=== PATIENT | female | born 1930 | race Caucasian/White ===

== ENCOUNTER 2017-08-25 13:55 | Inpatient (IN) | payer MEDICARE, MEDICAID ==
--- NOTE | 2017-08-25 14:43 | ER Document Report ---
ED Medical Screen (RME) - General Chief Complaint: Dizziness Stated Complaint: DIZZY,NAUSEA Time Seen by Provider: 08/25/17 14:39 Notes: She states that her blood pressure is also been elevated recently but she has not missed any doses of her medications. She denies any pain. No vomiting or diarrhea. TRAVEL OUTSIDE OF THE [place] IN LAST 30 DAYS: No - Related Data Allergies/Adverse Reactions: No Known Allergies Allergy (Verified 08/25/17 13:55) Past Medical History - Past Medical History Cardiac Medical History: Reports: Hx Hypertension Endocrine Medical History: Reports: Hx Diabetes Mellitus Type 2 Renal/ Medical History: Denies: Hx Peritoneal Dialysis - Immunizations Hx Diphtheria, Pertussis, Tetanus Vaccination: No Physical Exam - Vital signs Vitals: Temp Pulse Resp BP Pulse Ox 98.3 F 77 20 228/109 H 97 08/25/17 14:10 08/25/17 14:10 08/25/17 14:10 08/25/17 14:10 08/25/17 14:10 Course - Vital Signs Vital signs: Temp Pulse Resp BP Pulse Ox 98.3 F 77 20 228/109 H 97 08/25/17 14:10 08/25/17 14:10 08/25/17 14:10 08/25/17 14:10 08/25/17 14:10
--- NOTE | 2017-08-25 15:16 | RADIOLOGY REPORT (SQ) ---
EXAM DESCRIPTION: CT HEAD WITHOUT COMPLETED DATE/TIME: 08/25/2017 3:06 pm REASON FOR STUDY: dizzy COMPARISON: CT brain 10/24/2012 TECHNIQUE: Axial images acquired through the brain without intravenous contrast. Images reviewed wi th bone, brain and subdural windows. Images stored on PACS. All CT scanners at this facility use dose modulation, iterative reconstruction, and/or weight based d osing when appropriate to reduce radiation dose to as low as reasonably achievable (ALARA). [facility]: Dose Right [facility]: CareDose [facility]: Dose Right [facility]: Teradose 4D [facility]: [employer] RADIATION DOSE: CT Rad equipment meets quality standard of care and radiation dose reduction techniq ues were employed. CTDIvol: 64.6 mGy. DLP: 1163 mGy-cm. mGy. LIMITATIONS: None. FINDINGS: VENTRICLES: Normal size and contour. CEREBRUM: There is spotty low attenuation in the bifrontal and biparietal white matter, with an old i nfarct in the left caudate lobe from chronic small vessel ischemic change. No CT evidence of acute la rge territory ischemic change, acute intracranial hemorrhage, mass effect, or midline shift. CEREBELLUM: No masses. No hemorrhage. No alteration of density. No evidence for acute infarction. EXTRAAXIAL SPACES: No fluid collections. No masses. ORBITS AND GLOBE: No intra- or extraconal masses. Normal contour of globe without masses. CALVARIUM: No fracture. PARANASAL SINUSES: No fluid or mucosal thickening. SOFT TISSUES: No mass or hematoma. OTHER: No other significant finding. IMPRESSION: No acute findings EVIDENCE OF ACUTE STROKE: NO. COMMENT: Quality ID # [id number]: Final reports with documentation of one or more dose reduction techniques (e.g., Automated exposure control, adjustment of the mA and/or kV according to patient size, use of iterative reconstruction technique) TECHNICAL DOCUMENTATION: JOB ID: [id number] [employer]- All Rights Reserved Reading location - IP/workstation name: [email or web address]
[2017-08-25 15:19] LABS: ABSOLUTE BASOPHILS # (AUTO) 0.1 10^3/uL (0.0-0.2); ABSOLUTE LYMPHOCYTES (AUTO) 1.8 10^3/uL (0.5-4.7); ABSOLUTE MONOCYTES (AUTO) 0.4 10^3/uL (0.1-1.4); ABSOLUTE NEUT (AUTO) 7.5 10^3/uL (1.7-8.2); BASOPHILS % (AUTO) 0.9 % (0-2); EOSINOPHILS % (AUTO) 0.5 % (0-6); HEMATOCRIT 45.4 % (36.0-47.0); HEMOGLOBIN 15.3 g/dL (12.0-15.5); LYMPHOCYTES % (AUTO) 17.9 % (13-45); MEAN CORPUSCULAR HEMOGLOBIN 29.6 pg (27.0-33.4); MEAN CORPUSCULAR HGB CONC 33.8 g/dL (32.0-36.0); MEAN CORPUSCULAR VOLUME 88 fl (80-97); MONOCYTES % (AUTO) 4.2 % (3-13); PLATELET COUNT 234 10^3/uL (150-450); RED BLOOD COUNT 5.17 10^6/uL (3.72-5.28); RED CELL DISTRIBUTION WIDTH 13.4 % (11.5-14.0); SEGMENTED NEUTROPHILS % (AUTO) 76.5 % (42-78); TOTAL CELLS COUNTED % (AUTO) 100 %; WHITE BLOOD COUNT 9.8 10^3/uL (4.0-10.5)
[2017-08-25 15:36] LABS: ALANINE AMINOTRANSFERASE 35 U/L (9-52); ALBUMIN 4.4 g/dL (3.5-5.0); ALKALINE PHOSPHATASE 71 U/L (38-126); ANION GAP 12 (5-19); ASPARTATE AMINO TRANSFERASE 25 U/L (14-36); BILIRUBIN,DIRECT 0.4 mg/dL (0.0-0.4); BILIRUBIN,TOTAL 0.5 mg/dL (0.2-1.3); BLOOD UREA NITROGEN 18 mg/dL (7-20); CALCIUM 9.6 mg/dL (8.4-10.2); CARBON DIOXIDE 20 mmol/L (22-30); CHLORIDE 109 mmol/L (98-107); GLUCOSE 141 mg/dL (75-110); POTASSIUM 4.5 mmol/L (3.6-5.0); SODIUM 141.4 mmol/L (137-145); TOTAL PROTEIN 7.3 g/dL (6.3-8.2)
[2017-08-25 15:50] LABS: APPEARANCE,URINE SLIGHTLY-CLOUDY; BILIRUBIN,URINE NEGATIVE (NEGATIVE); GLUCOSE, URINE NEGATIVE (NEGATIVE); KETONES,URINE NEGATIVE (NEGATIVE); LEUKOCYTE ESTERASE,URINE SMALL (NEGATIVE); NITRITE,URINE NEGATIVE (NEGATIVE); PROTEIN,URINE NEGATIVE (NEGATIVE); URINE SPECIFIC GRAVITY 1.021
[2017-08-25 15:51] LABS: COLOR,URINE YELLOW
[2017-08-25] MEDS ORDERED: LABETALOL HCL INJ 20 MG/4 ML DISP.SYRIN IV ONE (18:21)
[2017-08-25] MEDS ORDERED: NICARDIPINE HCL RTU, ISO-OS 20 MG/200 ML RTUINJ IV PRN (19:35)
--- NOTE | 2017-08-25 19:36 | ER Document Report ---
ED General - General Mode of Arrival: Ambulatory Information source: Patient TRAVEL OUTSIDE OF THE [place] IN LAST 30 DAYS: No <ESTHER STARKS - Last Filed: 08/25/17 23:28> <BEAU VANCE - Last Filed: 08/26/17 02:10> - General Chief Complaint: Dizziness Stated Complaint: DIZZY,NAUSEA Time Seen by Provider: 08/25/17 14:39 Notes: Patient is an 86 year old female with a history of type 2 diabetes presents to the emergency department complaining of multiple symptoms including dizziness, nausea, and vomiting onset this morning. Patient states when she woke up this morning to use the bathroom she became really dizzy and decided to lay back down. Patient states when she awoke an hour later she was nauseous and vomited her breakfast of wheat toast. Patient further states she remained dizzy which is exacerbated with movement and relived when supine. At bedside patient states she is still dizzy although no longer nauseous. Patient states she currently takes Lisinopril and Metformin. (ESTHER STARKS) - Related Data Allergies/Adverse Reactions: No Known Allergies Allergy (Verified 08/25/17 13:55) Past Medical History - General Information source: Patient - Social History Smoking Status: Never Smoker Family History: Reviewed & Not Pertinent Patient has suicidal ideation: No Patient has homicidal ideation: No - Past Medical History Cardiac Medical History: Reports: Hx Hypertension Endocrine Medical History: Reports: Hx Diabetes Mellitus Type 2 - Immunizations Hx Diphtheria, Pertussis, Tetanus Vaccination: No <ESTHER STARKS - Last Filed: 08/25/17 23:28> Review of Systems - Review of Systems Constitutional: No symptoms reported EENT: No symptoms reported Cardiovascular: See HPI, Dizziness Respiratory: No symptoms reported Gastrointestinal: See HPI, Nausea, Vomiting Genitourinary: No symptoms reported Female Genitourinary: No symptoms reported Musculoskeletal: No symptoms reported Skin: No symptoms reported Hematologic/Lymphatic: No symptoms reported Neurological/Psychological: No symptoms reported -: Yes All other systems reviewed and negative <ESTHER STARKS - Last Filed: 08/25/17 23:28> Physical Exam <ESTHER STARKS - Last Filed: 08/25/17 23:28> <BEAU VANCE - Last Filed: 08/26/17 02:10> - Vital signs Vitals: Temp Pulse Resp BP Pulse Ox 98.3 F 77 20 228/109 H 97 08/25/17 14:10 08/25/17 14:10 08/25/17 14:10 08/25/17 14:10 08/25/17 14:10 - Notes Notes: GENERAL: Alert, interacts well. No acute distress. Hypertensive. HEAD: Normocephalic, atraumatic. EYES: Pupils equal, round, and reactive to light. Extraocular movements intact. ENT: Oral mucosa moist, tongue midline. NECK: Full range of motion. Supple. Trachea midline. LUNGS: Clear to auscultation bilaterally, no wheezes, rales, or rhonchi. No respiratory distress. HEART: Regular rate and rhythm. No murmurs, gallops, or rubs. ABDOMEN: Soft, non-tender. Non-distended. Bowel sounds present in all 4 quadrants. EXTREMITIES: Moves all 4 extremities spontaneously. NEUROLOGICAL: Alert and oriented x3. Normal speech. Neurologically intact. PSYCH: Normal affect, normal mood. SKIN: Warm, dry, normal turgor. No rashes or lesions noted. (ESTHER STARKS) Course - Laboratory Result Diagrams: 08/25/17 14:50 08/25/17 14:50 <ESTHER STARKS - Last Filed: 08/25/17 23:28> - Laboratory Result Diagrams: 08/25/17 14:50 08/25/17 14:50 - Diagnostic Test Radiology reviewed: Reports reviewed <BEAU VANCE - Last Filed: 08/26/17 02:10> - Re-evaluation Re-evalutation: 08/26/17 Patient is an 86-year-old female who comes in complaining of not feeling well. Patient has been off balance today and also nauseated. Patient had episodes of vomiting at home. Patient had her nausea controlled with Zofran here in the emergency department. No acute finding on blood work including 2 negative troponins. No acute findings on EKG. CT head within normal limits. Patient has been severely hypertensive. She was given labetalol without much change in her blood pressure. Patient was discussed with her primary care doctor and Cardene drip was initiated. MRI head with no acute findings. Patient will be admitted to the ICU due to her being on a Cardene drip. We will try to titrate her up and down patient is only tolerating a very low dose. Patient is agreeable with admission. Stable at time of admission. Grateful for care. ( BEAU VANCE) - Vital Signs Vital signs: Temp Pulse Resp BP Pulse Ox 98.3 F 78 18 170/97 H 96 08/25/17 14:10 08/26/17 00:00 08/26/17 00:00 08/26/17 00:00 08/26/17 00:00 - Laboratory Laboratory results interpreted by me: 08/25/17 08/25/17 08/25/17 14:50 15:37 22:23 Chloride 109 H Carbon Dioxide 20 L Glucose 141 H POC Glucose 159 H Urine Urobilinogen 2.0 H Ur Leukocyte Esterase SMALL H Critical Care Note - Critical Care Note Total time excluding time spent on procedures (mins): 45 - Evaluation and management of hypertensive emergency, neurologic symptoms, multiple re- evaluations, initiation of Cardene drip, coordination of admission, and sling of patient and family, multiple re-evaluations <BEAU VANCE - Last Filed: 08/26/17 02:10> Discharge <ESTHER STARKS - Last Filed: 08/25/17 23:28> - Discharge Admitting Provider: Riana Unit Admitted: ICU <BEAU VANCE - Last Filed: 08/26/17 02:10> - Discharge Clinical Impression: Accelerated hypertension, Nausea, Balance problem Condition: Stable Disposition: ADMITTED INPATIENT Scribe Attestation: 08/26/17 02:09 I personally performed the services described in the documentation, reviewed and edited the documentation which was dictated to the scribe in my presence, and it accurately records my words and actions. (BEAU VANCE)
--- NOTE | 2017-08-25 20:00 | EKG REPORT ---
SEVERITY:- ABNORMAL ECG - SINUS RHYTHM LEFT VENTRICULAR HYPERTROPHY : Confirmed by: Hermes Ibarra MD 25-Aug-2017 20:00:11
[2017-08-25] MEDS ORDERED: LORAZEPAM INJ 2 MG/1 ML VIAL IV ONE (20:20)
--- NOTE | 2017-08-25 21:21 | RADIOLOGY REPORT (SQ) ---
EXAM DESCRIPTION: MRI HEAD WITHOUT COMPLETED DATE/TIME: 08/25/2017 9:10 pm REASON FOR STUDY: hypertensive urgency, balance issues COMPARISON: CT dated 08/25/2017. TECHNIQUE: Multiplanar imaging includes non-contrasted T1, T2, FLAIR, and diffusion with ADC map seq uences. Images stored on PACS. LIMITATIONS: None. FINDINGS: ANATOMY: No anomalies. Normal vascular flow voids. Pituitary fossa normal. CSF SPACES: Atrophy induced prominence of ventricles and CSF spaces. CEREBRUM: High signal intensity lesions scattered throughout the white matter on FLAIR imaging with d istribution suggesting micro-vascular ischemic changes. No evidence of hemorrhage, mass, or extraaxi al fluid collection. POSTERIOR FOSSA: No signal alteration. No hemorrhage. No edema, masses or mass effect. Internal aleksandr tory canals, cerebello-pontine angles, mastoids normal. DIFFUSION IMAGING: Negative for acute or sub-acute infarction. ORBITS: No masses. Globes normal. PARANASAL SINUSES: No fluid levels. Mucosa normal. OTHER: No other significant finding. IMPRESSION: ATROPHY AND CHRONIC MICRO-VASCULAR ISCHEMIC CHANGES. OTHERWISE NORMAL MRI OF THE BRAIN W ITHOUT INTRAVENOUS GADOLINIUM CONTRAST. EVIDENCE OF ACUTE STROKE: NO. TECHNICAL DOCUMENTATION: JOB ID: [id number]- All Rights Reserved Reading location - IP/workstation name: [email or web address]
[2017-08-25] MEDS ORDERED: ONDANSETRON HCL INJ/PF 4 MG/2 ML SDV IV ONE (21:59)
[2017-08-26] MEDS ORDERED: ACETAMINOPHEN 325 MG TABLET PO PRN (01:03)
--- NOTE | 2017-08-26 01:07 | RADIOLOGY REPORT (SQ) ---
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 COMPARISON: 10/24/2012 NUMBER OF VIEWS/TECHNIQUE: 1/AP LIMITATIONS: None. FINDINGS: Prominent interstitium, small bibasilar atelectasis or scar, normal cardiac silhouette, atherosclerosis, and mild osteoarthritis. Stable. IMPRESSION: No acute cardiopulmonary findings.
[2017-08-26 03:50] LABS: ABSOLUTE BASOPHILS # (AUTO) 0.1 10^3/uL (0.0-0.2); ABSOLUTE LYMPHOCYTES (AUTO) 1.9 10^3/uL (0.5-4.7); ABSOLUTE MONOCYTES (AUTO) 0.6 10^3/uL (0.1-1.4); ABSOLUTE NEUT (AUTO) 9.5 10^3/uL (1.7-8.2); BASOPHILS % (AUTO) 0.5 % (0-2); EOSINOPHILS % (AUTO) 0.2 % (0-6); HEMATOCRIT 43.6 % (36.0-47.0); HEMOGLOBIN 14.4 g/dL (12.0-15.5); LYMPHOCYTES % (AUTO) 15.8 % (13-45); MEAN CORPUSCULAR HEMOGLOBIN 29.2 pg (27.0-33.4); MEAN CORPUSCULAR VOLUME 89 fl (80-97); MONOCYTES % (AUTO) 4.6 % (3-13); PLATELET COUNT 224 10^3/uL (150-450); RED BLOOD COUNT 4.93 10^6/uL (3.72-5.28); RED CELL DISTRIBUTION WIDTH 13.2 % (11.5-14.0); SEGMENTED NEUTROPHILS % (AUTO) 78.9 % (42-78); TOTAL CELLS COUNTED % (AUTO) 100 %; WHITE BLOOD COUNT 12.1 10^3/uL (4.0-10.5)
[2017-08-26 04:14] LABS: ALANINE AMINOTRANSFERASE 31 U/L (9-52); ALKALINE PHOSPHATASE 57 U/L (38-126); ANION GAP 9 (5-19); ASPARTATE AMINO TRANSFERASE 23 U/L (14-36); BILIRUBIN,DIRECT 0.4 mg/dL (0.0-0.4); BILIRUBIN,TOTAL 0.5 mg/dL (0.2-1.3); BLOOD UREA NITROGEN 16 mg/dL (7-20); CARBON DIOXIDE 25 mmol/L (22-30); CHLORIDE 108 mmol/L (98-107); GLUCOSE 154 mg/dL (75-110); PHOSPHORUS 3.9 mg/dL (2.5-4.5); POTASSIUM 4.1 mmol/L (3.6-5.0); TOTAL PROTEIN 6.7 g/dL (6.3-8.2)
[2017-08-26] MEDS: LANSOPRAZOLE 30 MG TAB.RAP.DR PO SCH (06:21)
[2017-08-26] MEDS: NICARDIPINE HCL RTU, ISO-OS 20 MG/200 ML RTUINJ IV PRN ×3 (06:41→23:48)
[2017-08-26] MEDS ORDERED: DEXTROSE 40% GEL 15 GM TUBE PO PRN ×2 (08:24)
[2017-08-26] MEDS ORDERED: INSULIN LISPRO 100 UNIT/ML 3 ML VIAL SUBCUT PRN (08:24)
[2017-08-26] MEDS ORDERED: GLUCAGON,HUMAN RECOMB 1 MG INJ IM PRN (08:24)
[2017-08-26] MEDS ORDERED: DEXTROSE 50%-WATER 25 GM/50 ML DISP.SYRIN IV PRN ×2 (08:24)
--- NOTE | 2017-08-26 08:49 | PDOC H&P ---
History of Present Illness Admission Date/PCP: 08/25/17 22:45 FLORENTINO FAN Patient complains of: Nausea and dizziness History of Present Illness: DEUCE SAAVEDRA is a 86 year old female known to my practice who presented to the ED with new onset of dizziness while walking, nausea and vomiting while walking. Patient states when she woke up this morning to use the bathroom she became really dizzy and decided to lay back down. She reported inability to tolerate her breakfast prior to coming to the ED due to associated nause and vomiting that started after her initial episode of dizziness. She was found to have significantly elevated blood pressure upon arrival in the ED as pre recorded vitals. There was persistence of dizziness, particularly worsen with any attempts at walking. Her evaluation with head CT scan and subsequently head MRI was unrevealing. She was treated with IV Labetalol with minimal response. She was advised hospitalization for further management of her elevated blood pressure with possible end organ impairment in view of her abnormal gait and postural dizziness. Her morbidities include Hypertension, Diabetes mellitus type 2, Obesity, and Osteoarthritis. Past Medical History Cardiac Medical History: Reports: Hypertension Endocrine Medical History: Reports: Diabetes Mellitus Type 2 Psychiatric Medical History: Denies: Depression Social History Smoking Status: Never Smoker Frequency of Alcohol Use: None Hx Recreational Drug Use: No Hx Prescription Drug Abuse: No - Advance Directive Resuscitation Status: Full Code Family History Family History: Reviewed & Not Pertinent Parental Family History Reviewed: Yes Children Family History Reviewed: Yes Sibling(s) Family History Reviewed.: Yes Medication/Allergy Home Medications: Fluticasone Propionate 1 spray NASL DAILY 08/25/17 Lisinopril [Lisinopril] 40 mg PO DAILY 08/25/17 Metformin HCl [Metformin HCl] 500 mg PO DAILY 08/25/17 Allergies/Adverse Reactions: No Known Allergies Allergy (Verified 08/25/17 13:55) Review of Systems Constitutional: PRESENT: headache(s) Ears: PRESENT: hearing changes - long standing hearing impairment Cardiovascular: ABSENT: chest pain, dyspnea on exertion, edema, orthropnea, palpitations Respiratory: ABSENT: cough, hemoptysis Gastrointestinal: PRESENT: nausea. ABSENT: as per HPI, abdominal pain, bloating , coffee ground emesis, constipation, diarrhea, dysphagia, heartburn, hematemesis, hematochezia, melena, vomiting, other Genitourinary: ABSENT: dysuria, hematuria Musculoskeletal: ABSENT: joint swelling Integumentary: ABSENT: rash, wounds Neurological: PRESENT: abnormal gait - not walking straight and dizziness. ABSENT: as per HPI, abnormal movements, abnormal speech, confusion, convulsions , dizziness, focal weakness, frequent falls, lack of coordination, memory loss, numbness, paresthesias, restless legs, syncope, tingling, tremor(s), vertigo, weakness, other Psychiatric: ABSENT: anxiety, depression, homidical ideation, suicidal ideation Endocrine: ABSENT: cold intolerance, heat intolerance, polydipsia, polyuria Hematologic/Lymphatic: ABSENT: easy bleeding, easy bruising, lymphadenopathy Allergic/Immunologic: ABSENT: seasonal rhinorrhea Physical Exam Vital Signs: Temp Pulse Resp BP Pulse Ox 98.4 F 73 16 149/65 H 96 08/26/17 08:00 08/26/17 08:00 08/26/17 08:00 08/26/17 08:00 08/26/17 08:07 Intake & Output 08/25/17 08/26/17 08/27/17 06:59 06:59 06:59 Output Total 0 250 Balance 0 -250 Weight 82 kg General appearance: PRESENT: no acute distress, well-developed, well-nourished Head exam: PRESENT: atraumatic, normocephalic Eye exam: PRESENT: conjunctiva pink, EOMI, PERRLA. ABSENT: scleral icterus Mouth exam: PRESENT: moist Neck exam: PRESENT: full ROM. ABSENT: carotid bruit, JVD, lymphadenopathy, thyromegaly Respiratory exam: PRESENT: clear to auscultation carlin Cardiovascular exam: PRESENT: RRR. ABSENT: diastolic murmur, rubs, systolic murmur Pulses: PRESENT: normal dorsalis pedis pul, +2 pedal pulses bilateral Vascular exam: PRESENT: normal capillary refill. ABSENT: pallor GI/Abdominal exam: PRESENT: normal bowel sounds, soft. ABSENT: distended, guarding, mass, organolmegaly, rebound, tenderness Rectal exam: PRESENT: deferred Extremities exam: ABSENT: pedal edema Musculoskeletal exam: PRESENT: deformity - related to multiple joint involvment with arthriis Neurological exam: PRESENT: alert, awake, oriented to person, oriented to place , oriented to time, oriented to situation, abnormal gait - related to dizziness , CN II-XII grossly intact. ABSENT: motor sensory deficit Psychiatric exam: PRESENT: appropriate affect, normal mood. ABSENT: homicidal ideation, suicidal ideation Skin exam: PRESENT: dry, intact, rash - severe diffuse seborrhiec keratosis, warm. ABSENT: cyanosis Results Laboratory Results: 08/26/17 03:36 08/26/17 03:36 08/26/17 08/26/17 03:36 03:36 WBC 12.1 H RBC 4.93 Hgb 14.4 Hct 43.6 MCV 89 MCH 29.2 MCHC 33.0 RDW 13.2 Plt Count 224 Seg Neutrophils % 78.9 H Lymphocytes % 15.8 Monocytes % 4.6 Eosinophils % 0.2 Basophils % 0.5 Absolute Neutrophils 9.5 H Absolute Lymphocytes 1.9 Absolute Monocytes 0.6 Absolute Eosinophils 0.0 Absolute Basophils 0.1 Sodium 142.0 Potassium 4.1 Chloride 108 H Carbon Dioxide 25 Anion Gap 9 BUN 16 Creatinine 0.67 Est GFR ( Amer) > 60 Est GFR (Non-Af Amer) > 60 Glucose 154 H Calcium 9.0 Phosphorus 3.9 Magnesium 1.8 Total Bilirubin 0.5 AST 23 ALT 31 Alkaline Phosphatase 57 Total Protein 6.7 Albumin 4.0 Impressions: Chest X-Ray 08/25/17 00:00 IMPRESSION: No acute cardiopulmonary findings. Head CT 08/25/17 14:39 IMPRESSION: No acute findings EVIDENCE OF ACUTE STROKE: NO. Head MRI 08/25/17 19:36 IMPRESSION: ATROPHY AND CHRONIC MICRO-VASCULAR ISCHEMIC CHANGES. OTHERWISE NORMAL MRI OF THE BRAIN WITHOUT INTRAVENOUS GADOLINIUM CONTRAST. EVIDENCE OF ACUTE STROKE: NO. Assessment & Plan - Time Time Spent: 50 to 70 Minutes Medications reviewed and adjusted accordingly: Yes Anticipated discharge: Home with Homehealth Within: Other - Inpatient Certification Based on my medical assessment, after consideration of the patient's comorbidities, presenting symptoms, or acuity I expect that the services needed warrant INPATIENT care.: Yes I certify that my determination is in accordance with my understanding of Medicare's requirements for reasonable and necessary INPATIENT services [42 CFR 412.3e].: Yes Medical Necessity: Need Close Monitoring Due to Risk of Patient Decompensation, Need For Continuous Telemetry Monitoring, Need for IV Antibiotics, Risk of Complication if Not Cared For in Hospital 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
[2017-08-26] MEDS ORDERED: CEFTRIAXONE 1 GM/D5W RTU 1 GM/50 ML RTUPB IV SCH (09:00)
--- NOTE | 2017-08-26 09:29 | EKG REPORT ---
SEVERITY:- ABNORMAL ECG - SINUS RHYTHM PAIRED VENTRICULAR PREMATURE COMPLEXES LVH BY VOLTAGE : Confirmed by: Hermes Ibarra MD 26-Aug-2017 09:28:32
--- NOTE | 2017-08-26 09:31 | EKG REPORT ---
SEVERITY:- ABNORMAL ECG - SINUS RHYTHM LVH WITH SECONDARY REPOLARIZATION ABNORMALITY : Confirmed by: Hermes Ibarra MD 26-Aug-2017 09:30:19
[2017-08-26] MEDS ORDERED: LANSOPRAZOLE 30 MG TAB.RAP.DR PO SCH (10:00)
[2017-08-26] MEDS: CEFTRIAXONE SODIUM 1,000 MG in NORMAL SALINE 100 ML IV SCH (10:00)
[2017-08-26] MEDS: METFORMIN HCL 500 MG TABLET PO SCH (10:01)
[2017-08-26] MEDS: LISINOPRIL 10 MG TABLET PO SCH (10:01)
[2017-08-26] MEDS: ENOXAPARIN SODIUM INJ 40 MG/0.4 ML DISP.SYRIN SUBCUT SCH (10:02)
[2017-08-26] MEDS: ONDANSETRON HCL INJ/PF 4 MG/2 ML SDV IV PRN ×2 (10:07→14:42)
[2017-08-26 16:21] LABS: CREATINE KINASE MB 1.07 ng/mL (<4.55)
[2017-08-26 16:22] LABS: TROPONIN I < 0.012 ng/mL
[2017-08-26] MEDS ORDERED: PROMETHAZINE HCL INJ 25 MG/1 ML VIAL ONE (18:03)
[2017-08-26] MEDS ORDERED: PROMETHAZINE HCL INJ 25 MG/1 ML VIAL IV ONE (18:30)
[2017-08-27 03:48] LABS: ABSOLUTE BASOPHILS # (AUTO) 0.1 10^3/uL (0.0-0.2); ABSOLUTE EOSINOPHILS # (AUTO) 0.1 10^3/uL (0.0-0.6); ABSOLUTE LYMPHOCYTES (AUTO) 2.1 10^3/uL (0.5-4.7); ABSOLUTE MONOCYTES (AUTO) 0.9 10^3/uL (0.1-1.4); ABSOLUTE NEUT (AUTO) 8.8 10^3/uL (1.7-8.2); BASOPHILS % (AUTO) 0.6 % (0-2); EOSINOPHILS % (AUTO) 0.7 % (0-6); HEMATOCRIT 44.5 % (36.0-47.0); HEMOGLOBIN 14.9 g/dL (12.0-15.5); LYMPHOCYTES % (AUTO) 17.3 % (13-45); MEAN CORPUSCULAR HEMOGLOBIN 29.7 pg (27.0-33.4); MEAN CORPUSCULAR HGB CONC 33.6 g/dL (32.0-36.0); MEAN CORPUSCULAR VOLUME 88 fl (80-97); MONOCYTES % (AUTO) 7.6 % (3-13); PLATELET COUNT 220 10^3/uL (150-450); RED BLOOD COUNT 5.03 10^6/uL (3.72-5.28); RED CELL DISTRIBUTION WIDTH 13.4 % (11.5-14.0); SEGMENTED NEUTROPHILS % (AUTO) 73.8 % (42-78); TOTAL CELLS COUNTED % (AUTO) 100 %; WHITE BLOOD COUNT 11.9 10^3/uL (4.0-10.5)
[2017-08-27 04:03] LABS: ALANINE AMINOTRANSFERASE 37 U/L (9-52); ALKALINE PHOSPHATASE 54 U/L (38-126); ANION GAP 10 (5-19); ASPARTATE AMINO TRANSFERASE 27 U/L (14-36); BILIRUBIN,DIRECT 0.4 mg/dL (0.0-0.4); BILIRUBIN,TOTAL 0.6 mg/dL (0.2-1.3); BLOOD UREA NITROGEN 13 mg/dL (7-20); CALCIUM 9.1 mg/dL (8.4-10.2); CARBON DIOXIDE 25 mmol/L (22-30); CHLORIDE 106 mmol/L (98-107); GLUCOSE 118 mg/dL (75-110); POTASSIUM 3.5 mmol/L (3.6-5.0); SODIUM 140.6 mmol/L (137-145); TOTAL PROTEIN 6.8 g/dL (6.3-8.2)
[2017-08-27] MEDS: LANSOPRAZOLE 30 MG TAB.RAP.DR PO SCH (06:26)
--- NOTE | 2017-08-27 08:17 | PDOC PROGRESS REPORT ---
Subjective Progress Note for:: 08/27/17 Subjective:: Patient reported some improvement in her nausea, vomiting and dizziness since last clinical evaluation. No chest pain or difficulty with breathing. No fever or chills. Reason For Visit: MALIGNANT HYPERTENSION Physical Exam Vital Signs: Temp Pulse Resp BP Pulse Ox 98.4 F 76 14 181/151 H 94 08/27/17 04:00 08/26/17 21:00 08/27/17 06:00 08/27/17 05:51 08/27/17 06:00 Intake & Output 08/26/17 08/27/17 08/28/17 06:59 06:59 06:59 Intake Total 1035 Output Total 0 950 Balance 0 85 Weight 82 kg 79.2 kg General appearance: PRESENT: no acute distress, well-developed, well-nourished Eye exam: PRESENT: conjunctiva pink, EOMI, PERRLA. ABSENT: scleral icterus Mouth exam: PRESENT: moist Respiratory exam: PRESENT: clear to auscultation carlin Cardiovascular exam: PRESENT: RRR. ABSENT: diastolic murmur, rubs, systolic murmur GI/Abdominal exam: PRESENT: normal bowel sounds, soft. ABSENT: distended, guarding, mass, organolmegaly, rebound, tenderness Extremities exam: ABSENT: pedal edema Neurological exam: PRESENT: alert, awake, oriented to person, oriented to place , oriented to time, oriented to situation, CN II-XII grossly intact. ABSENT: motor sensory deficit Skin exam: PRESENT: dry, intact, warm. ABSENT: cyanosis, rash Results Laboratory Results: 08/27/17 03:34 08/27/17 03:34 08/27/17 08/27/17 03:34 03:34 WBC 11.9 H RBC 5.03 Hgb 14.9 Hct 44.5 MCV 88 MCH 29.7 MCHC 33.6 RDW 13.4 Plt Count 220 Seg Neutrophils % 73.8 Lymphocytes % 17.3 Monocytes % 7.6 Eosinophils % 0.7 Basophils % 0.6 Absolute Neutrophils 8.8 H Absolute Lymphocytes 2.1 Absolute Monocytes 0.9 Absolute Eosinophils 0.1 Absolute Basophils 0.1 Sodium 140.6 Potassium 3.5 L Chloride 106 Carbon Dioxide 25 Anion Gap 10 BUN 13 Creatinine 0.78 Est GFR ( Amer) > 60 Est GFR (Non-Af Amer) > 60 Glucose 118 H Calcium 9.1 Total Bilirubin 0.6 AST 27 ALT 37 Alkaline Phosphatase 54 Total Protein 6.8 Albumin 4.0 08/26/17 08/26/17 15:39 15:39 Creatine Kinase 55 CK-MB (CK-2) 1.07 Troponin I < 0.012 Impressions: Chest X-Ray 08/25/17 00:00 IMPRESSION: No acute cardiopulmonary findings. Head CT 08/25/17 14:39 IMPRESSION: No acute findings EVIDENCE OF ACUTE STROKE: NO. Head MRI 08/25/17 19:36 IMPRESSION: ATROPHY AND CHRONIC MICRO-VASCULAR ISCHEMIC CHANGES. OTHERWISE NORMAL MRI OF THE BRAIN WITHOUT INTRAVENOUS GADOLINIUM CONTRAST. EVIDENCE OF ACUTE STROKE: NO. Assessment & Plan - Time Time Spent with patient: 25-34 minutes Medications reviewed and adjusted accordingly: Yes Anticipated discharge: Home with Homehealth Within: Other - Inpatient Certification Based on my medical assessment, after consideration of the patient's comorbidities, presenting symptoms, or acuity I expect that the services needed warrant INPATIENT care.: Yes I certify that my determination is in accordance with my understanding of Medicare's requirements for reasonable and necessary INPATIENT services [42 CFR 412.3e].: Yes Medical Necessity: Need Close Monitoring Due to Risk of Patient Decompensation, Need For IV Fluids, Need For Continuous Telemetry Monitoring, Risk of Complication if Not Cared For in Hospital 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 Start on Phenegan 6.25 mg IV q3hyida prn for nausea or vomiting. Potassium replacement in progress. Obtain serum Mag level. Continue IV Rocephin coverage. Maintain on IV Cardene therapy pending control of her nausea and vomiting to permit oral medication administration. Maintain on all other current management.
[2017-08-27] MEDS: PROMETHAZINE HCL INJ 25 MG/1 ML VIAL IV PRN (08:36)
[2017-08-27] MEDS: POTASSI CL 20 MEQ/50 ML RIDER 20 MEQ/50 ML RTUPB IV SCH ×2 (08:37→10:11)
[2017-08-27] MEDS: METFORMIN HCL 500 MG TABLET PO SCH (10:05)
[2017-08-27] MEDS: LISINOPRIL 10 MG TABLET PO SCH (10:05)
[2017-08-27] MEDS: ENOXAPARIN SODIUM INJ 40 MG/0.4 ML DISP.SYRIN SUBCUT SCH (10:05)
[2017-08-27] MEDS: CEFTRIAXONE SODIUM 1,000 MG in NORMAL SALINE 100 ML IV SCH (10:10)
[2017-08-27] MEDS ORDERED: AMLODIPINE BESYLATE 5 MG TABLET PO ONE (15:30)
[2017-08-28 03:54] LABS: ANION GAP 10 (5-19); BLOOD UREA NITROGEN 24 mg/dL (7-20); CARBON DIOXIDE 25 mmol/L (22-30); CHLORIDE 107 mmol/L (98-107); GLUCOSE 102 mg/dL (75-110); POTASSIUM 3.8 mmol/L (3.6-5.0); SODIUM 142.2 mmol/L (137-145)
[2017-08-28] MEDS: LANSOPRAZOLE 30 MG TAB.RAP.DR PO SCH (05:40)
--- NOTE | 2017-08-28 09:14 | PDOC PROGRESS REPORT ---
Subjective Progress Note for:: 08/28/17 Subjective:: Patient is doing fair Patient's denied any chest pain denied any shortness of the breath Patient's blood pressure is running 170 Patient still feeling dizzy but denied any headache denied any blurry vision or weakness Reason For Visit: MALIGNANT HYPERTENSION Physical Exam Vital Signs: Temp Pulse Resp BP Pulse Ox 97.9 F 57 L 10 L 204/77 H 98 08/28/17 07:44 08/28/17 07:44 08/28/17 07:51 08/28/17 07:51 08/28/17 07:51 Intake & Output 08/27/17 08/28/17 08/29/17 06:59 06:59 06:59 Intake Total 1035 2530 200 Output Total 950 1200 200 Balance 85 1330 0 Weight 79.2 kg 81.2 kg General appearance: PRESENT: no acute distress, well-developed, well-nourished Head exam: PRESENT: atraumatic, normocephalic Eye exam: PRESENT: conjunctiva pink, EOMI, PERRLA. ABSENT: scleral icterus Ear exam: PRESENT: normal external ear exam Mouth exam: PRESENT: moist, tongue midline Neck exam: PRESENT: full ROM. ABSENT: carotid bruit, JVD, lymphadenopathy, thyromegaly Respiratory exam: PRESENT: clear to auscultation carlin Cardiovascular exam: PRESENT: RRR. ABSENT: diastolic murmur, rubs, systolic murmur Pulses: PRESENT: normal dorsalis pedis pul, +2 pedal pulses bilateral Vascular exam: PRESENT: normal capillary refill GI/Abdominal exam: PRESENT: normal bowel sounds, soft. ABSENT: distended, guarding, mass, organolmegaly, rebound, tenderness Rectal exam: PRESENT: deferred Extremities exam: ABSENT: full ROM, left AKA, right AKA, left BKA, right BKA, calf tenderness, joint swelling, pedal edema, tenderness, other Neurological exam: PRESENT: alert, awake, oriented to person, oriented to place , oriented to time, oriented to situation, CN II-XII grossly intact. ABSENT: motor sensory deficit Psychiatric exam: PRESENT: appropriate affect, normal mood. ABSENT: homicidal ideation, suicidal ideation Skin exam: PRESENT: dry, intact, warm. ABSENT: cyanosis, rash Results Laboratory Results: 08/27/17 03:34 08/28/17 03:29 08/27/17 08/28/17 03:34 03:29 Sodium 142.2 Potassium 3.8 Chloride 107 Carbon Dioxide 25 Anion Gap 10 BUN 24 H Creatinine 0.85 Est GFR ( Amer) > 60 Est GFR (Non-Af Amer) > 60 Glucose 102 Calcium 9.0 Magnesium 1.9 08/26/17 08/26/17 15:39 15:39 Creatine Kinase 55 CK-MB (CK-2) 1.07 Troponin I < 0.012 Impressions: Chest X-Ray 08/25/17 00:00 IMPRESSION: No acute cardiopulmonary findings. Head CT 08/25/17 14:39 IMPRESSION: No acute findings EVIDENCE OF ACUTE STROKE: NO. Head MRI 08/25/17 19:36 IMPRESSION: ATROPHY AND CHRONIC MICRO-VASCULAR ISCHEMIC CHANGES. OTHERWISE NORMAL MRI OF THE BRAIN WITHOUT INTRAVENOUS GADOLINIUM CONTRAST. EVIDENCE OF ACUTE STROKE: NO. Assessment & Plan - Diagnosis (1) Accelerated hypertension Is this a current diagnosis for this admission?: Yes Plan: Increase Norvasc 5 mg p.o. twice a day (2) Balance problem Is this a current diagnosis for this admission?: Yes Plan: We will consult physical therapy (3) Diabetes mellitus type 2 in obese Is this a current diagnosis for this admission?: Yes Plan: Stable (4) UTI (urinary tract infection) Qualifiers: Urinary tract infection type: acute cystitis Is this a current diagnosis for this admission?: Yes Plan: Continues to IV Rocephin - Time Time Spent with patient: 15-24 minutes Medications reviewed and adjusted accordingly: Yes Anticipated discharge: Home Within: Other - Inpatient Certification Medical Necessity: Need Close Monitoring Due to Risk of Patient Decompensation 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
[2017-08-28] MEDS: LISINOPRIL 10 MG TABLET PO SCH (09:44)
[2017-08-28] MEDS: METFORMIN HCL 500 MG TABLET PO SCH (09:45)
[2017-08-28] MEDS: CEFTRIAXONE SODIUM 1,000 MG in NORMAL SALINE 100 ML IV SCH (09:45)
[2017-08-28] MEDS: AMLODIPINE BESYLATE 5 MG TABLET PO SCH ×2 (09:45→18:23)
[2017-08-28] MEDS: ENOXAPARIN SODIUM INJ 40 MG/0.4 ML DISP.SYRIN SUBCUT SCH (09:46)
[2017-08-28] MEDS ORDERED: AMLODIPINE BESYLATE 5 MG TABLET PO SCH ×3 (10:00)
[2017-08-29 03:33] LABS: ABSOLUTE EOSINOPHILS # (AUTO) 0.4 10^3/uL (0.0-0.6); ABSOLUTE LYMPHOCYTES (AUTO) 2.9 10^3/uL (0.5-4.7); ABSOLUTE MONOCYTES (AUTO) 0.8 10^3/uL (0.1-1.4); ABSOLUTE NEUT (AUTO) 5.4 10^3/uL (1.7-8.2); BASOPHILS % (AUTO) 0.5 % (0-2); HEMATOCRIT 44.3 % (36.0-47.0); HEMOGLOBIN 14.9 g/dL (12.0-15.5); LYMPHOCYTES % (AUTO) 30.5 % (13-45); MEAN CORPUSCULAR HEMOGLOBIN 29.8 pg (27.0-33.4); MEAN CORPUSCULAR HGB CONC 33.6 g/dL (32.0-36.0); MEAN CORPUSCULAR VOLUME 89 fl (80-97); MONOCYTES % (AUTO) 8.8 % (3-13); PLATELET COUNT 191 10^3/uL (150-450); RED BLOOD COUNT 4.99 10^6/uL (3.72-5.28); RED CELL DISTRIBUTION WIDTH 13.4 % (11.5-14.0); SEGMENTED NEUTROPHILS % (AUTO) 56.2 % (42-78); TOTAL CELLS COUNTED % (AUTO) 100 %; WHITE BLOOD COUNT 9.6 10^3/uL (4.0-10.5)
[2017-08-29] MEDS: HYDRALAZINE HCL INJ/PF 20 MG/1 ML SDV IV PRN ×2 (03:49→22:50)
[2017-08-29 03:52] LABS: ANION GAP 12 (5-19); BLOOD UREA NITROGEN 26 mg/dL (7-20); CALCIUM 9.3 mg/dL (8.4-10.2); CARBON DIOXIDE 21 mmol/L (22-30); CHLORIDE 109 mmol/L (98-107); GLUCOSE 109 mg/dL (75-110); POTASSIUM 4.1 mmol/L (3.6-5.0); SODIUM 141.8 mmol/L (137-145)
[2017-08-29] MEDS ORDERED: NICARDIPINE HCL RTU, ISO-OS 20 MG/200 ML RTUINJ IV ONE (05:46)
[2017-08-29] MEDS ORDERED: NICARDIPINE HCL RTU, ISO-OS 20 MG/200 ML RTUINJ IV PRN (06:13)
[2017-08-29] MEDS: LANSOPRAZOLE 30 MG TAB.RAP.DR PO SCH (06:37)
--- NOTE | 2017-08-29 09:10 | PDOC PROGRESS REPORT ---
Subjective Progress Note for:: 08/29/17 Subjective:: Patient's blood pressure was 200+ range at night times in patients to start the Marcie drip again Patient's denied any chest pain denied any shortness of breath Still feeling dizzy Patient's denied any abdominal pain no nausea no vomiting Patient was put on a IV hydralazine but he still does not work Reason For Visit: MALIGNANT HYPERTENSION Physical Exam Vital Signs: Temp Pulse Resp BP Pulse Ox 97.8 F 79 15 149/74 H 97 08/29/17 07:45 08/29/17 07:45 08/29/17 07:45 08/29/17 07:45 08/29/17 07:45 Intake & Output 08/28/17 08/29/17 08/30/17 06:59 06:59 06:59 Intake Total 2530 465 Output Total 1200 770 Balance 1330 -305 Weight 81.2 kg 80.6 kg General appearance: PRESENT: no acute distress, well-developed, well-nourished Head exam: PRESENT: atraumatic, normocephalic Eye exam: PRESENT: conjunctiva pink, EOMI, PERRLA. ABSENT: scleral icterus Ear exam: PRESENT: normal external ear exam Mouth exam: PRESENT: moist, tongue midline Neck exam: PRESENT: full ROM. ABSENT: carotid bruit, JVD, lymphadenopathy, thyromegaly Respiratory exam: PRESENT: clear to auscultation carlin Cardiovascular exam: PRESENT: RRR. ABSENT: diastolic murmur, rubs, systolic murmur Pulses: PRESENT: normal dorsalis pedis pul, +2 pedal pulses bilateral Vascular exam: PRESENT: normal capillary refill GI/Abdominal exam: PRESENT: normal bowel sounds, soft. ABSENT: distended, guarding, mass, organolmegaly, rebound, tenderness Rectal exam: PRESENT: deferred Extremities exam: ABSENT: pedal edema Neurological exam: PRESENT: alert, awake, oriented to person, oriented to place , oriented to time, oriented to situation, CN II-XII grossly intact. ABSENT: motor sensory deficit Psychiatric exam: PRESENT: appropriate affect, normal mood. ABSENT: homicidal ideation, suicidal ideation Skin exam: PRESENT: dry, intact, warm. ABSENT: cyanosis, rash Results Laboratory Results: 08/29/17 03:28 08/29/17 03:28 08/29/17 08/29/17 03:28 03:28 WBC 9.6 RBC 4.99 Hgb 14.9 Hct 44.3 MCV 89 MCH 29.8 MCHC 33.6 RDW 13.4 Plt Count 191 Seg Neutrophils % 56.2 Lymphocytes % 30.5 Monocytes % 8.8 Eosinophils % 4.0 Basophils % 0.5 Absolute Neutrophils 5.4 Absolute Lymphocytes 2.9 Absolute Monocytes 0.8 Absolute Eosinophils 0.4 Absolute Basophils 0.0 Sodium 141.8 Potassium 4.1 Chloride 109 H Carbon Dioxide 21 L Anion Gap 12 BUN 26 H Creatinine 0.80 Est GFR ( Amer) > 60 Est GFR (Non-Af Amer) > 60 Glucose 109 Calcium 9.3 08/26/17 08/26/17 15:39 15:39 Creatine Kinase 55 CK-MB (CK-2) 1.07 Troponin I < 0.012 Impressions: Chest X-Ray 08/25/17 00:00 IMPRESSION: No acute cardiopulmonary findings. Head CT 08/25/17 14:39 IMPRESSION: No acute findings EVIDENCE OF ACUTE STROKE: NO. Head MRI 08/25/17 19:36 IMPRESSION: ATROPHY AND CHRONIC MICRO-VASCULAR ISCHEMIC CHANGES. OTHERWISE NORMAL MRI OF THE BRAIN WITHOUT INTRAVENOUS GADOLINIUM CONTRAST. EVIDENCE OF ACUTE STROKE: NO. Assessment & Plan - Diagnosis (1) Accelerated hypertension Is this a current diagnosis for this admission?: Yes Plan: Still not getting better with the p.o. medications We will get the renal artery ultrasound to rule out any secondary hypertension's Will also get the 2D echocardiogram with some (2) Balance problem Is this a current diagnosis for this admission?: Yes Plan: We will consult physical therapy (3) Diabetes mellitus type 2 in obese Is this a current diagnosis for this admission?: Yes Plan: Stable (4) UTI (urinary tract infection) Qualifiers: Urinary tract infection type: acute cystitis Is this a current diagnosis for this admission?: Yes Plan: Continues to IV Rocephin - Time Time Spent with patient: 15-24 minutes Medications reviewed and adjusted accordingly: Yes Anticipated discharge: Home Within: Other - Inpatient Certification Medical Necessity: Need Close Monitoring Due to Risk of Patient Decompensation 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
[2017-08-29] MEDS ORDERED: POLYETHYLENE GLYCOL 3350 POWDER 17 GM/1 PACKET PO PRN (09:17)
[2017-08-29] MEDS: CEFTRIAXONE SODIUM 1,000 MG in NORMAL SALINE 100 ML IV SCH (09:41)
[2017-08-29] MEDS: AMLODIPINE BESYLATE 5 MG TABLET PO SCH ×2 (09:41→17:50)
[2017-08-29] MEDS: METFORMIN HCL 500 MG TABLET PO SCH (09:41)
[2017-08-29] MEDS: LISINOPRIL 10 MG TABLET PO SCH (09:42)
[2017-08-29] MEDS: ENOXAPARIN SODIUM INJ 40 MG/0.4 ML DISP.SYRIN SUBCUT SCH (09:48)
[2017-08-29] MEDS: DOCUSATE SODIUM 100 MG CAPSULE PO SCH ×2 (11:34→22:51)
[2017-08-29] MEDS: PROMETHAZINE HCL INJ 25 MG/1 ML VIAL IV PRN (11:43)
--- NOTE | 2017-08-29 11:48 | RADIOLOGY REPORT (SQ) ---
EXAM DESCRIPTION: U/S LTD DUPLEX ART/JASVIR FLOW COMPLETED DATE/TIME: 08/29/2017 11:39 am REASON FOR STUDY: uncontrolled Hypertension COMPARISON: None. TECHNIQUE: Realtime and static grayscale images acquired. Selected color Doppler, velocities and spe ctral images recorded. LIMITATIONS: None. FINDINGS: RIGHT KIDNEY: RENAL ARTERY VELOCITIES: 1001.2 cm/sec. Segmental artery velocity 46.3 cm/sec. RENAL VEIN: Color doppler flow present, patent. VELOCITY RATIO: 1.1. Normal waveforms. KIDNEY: Normal size. No significant pathology. LEFT KIDNEY: RENAL ARTERY VELOCITIES: 195 cm/sec. Segmental artery velocity 63 cm/sec. RENAL VEIN: Color doppler flow present, patent. VELOCITY RATIO: 2.11. Normal waveforms. KIDNEY: Normal size. No significant pathology. BLADDER: Not imaged. OTHER: No other significant finding. IMPRESSION: NO DOPPLER EVIDENCE OF HEMODYNAMICALLY SIGNIFICANT RENAL ARTERY STENOSIS. COMMENT: NORMAL RENAL ARTERY/AORTA VELOCITY RATIO IS LESS THAN OR EQUAL TO 3.5. TECHNICAL DOCUMENTATION: JOB ID: [id number] [employer]- All Rights Reserved Reading location - IP/workstation name: [email or web address]
--- NOTE | 2017-08-29 14:49 | PDOC CONSULTATION ---
Consultation Consult Date: 08/29/17 Attending physician:: FLORENTINO FAN Consult reason:: Cardiac dysrhythmia and fluctuating high blood pressure History of Present Illness Admission Date/PCP: 08/25/17 22:45 FLORENTINO FAN Patient complains of: Dizziness and weakness History of Present Illness: DEUCE SAAVEDRA is a 86 year old female known to my practice who presented to the ED with new onset of dizziness while walking, nausea and vomiting while walking. Patient states when she woke up this morning to use the bathroom she became really dizzy and decided to lay back down. She reported inability to tolerate her breakfast prior to coming to the ED due to associated nause and vomiting that started after her initial episode of dizziness. She was found to have significantly elevated blood pressure upon arrival in the ED as pre recorded vitals. There was persistence of dizziness, particularly worsen with any attempts at walking. Her evaluation with head CT scan and subsequently head MRI was unrevealing. She was treated with IV Labetalol with minimal response. She was advised hospitalization for further management of her elevated blood pressure with possible end organ impairment in view of her abnormal gait and postural dizziness. Her morbidities include Hypertension, Diabetes mellitus type 2, Obesity, and Osteoarthritis. Patient was noted to have severe fluctuations in her blood pressure with intermittent very high blood pressure. She was also noted to have intermittent wide-complex tachycardia however on review it was noted that patient just had sinus tachycardia with left bundle branch block pattern which seems rate related. Past Medical History Cardiac Medical History: Reports: Hypertension Endocrine Medical History: Reports: Diabetes Mellitus Type 2 Psychiatric Medical History: Denies: Depression Social History Information Source: Patient Smoking Status: Never Smoker Frequency of Alcohol Use: None Hx Recreational Drug Use: No Hx Prescription Drug Abuse: No - Advance Directive Resuscitation Status: Full Code Surrogate healthcare decision maker:: Patient's Family History Family History: Hypertension Parental Family History Reviewed: Yes Children Family History Reviewed: Yes Sibling(s) Family History Reviewed.: Yes Medication/Allergy Home Medications: Fluticasone Propionate 1 spray NASL DAILY 08/25/17 Lisinopril [Lisinopril] 40 mg PO DAILY 08/25/17 Metformin HCl [Metformin HCl] 500 mg PO DAILY 08/25/17 Allergies/Adverse Reactions: No Known Allergies Allergy (Verified 08/25/17 13:55) Review of Systems Review of Systems: Please see history of present illness and past medical history as wall. Constitutional: No fever or chills reported. Head : No recent chronic headaches, recent head injury. Claims recent dizziness. Eyes: No recent eye pain, diplopia, redness, discharge, acute visual changes. Ears: No recent chronic ear pain, acute hearing loss, ear discharge. Oral cavity: No recent ulcerations, bleeding, oral cavity discomfort. Neck: No recent acute neck pain reported. Hematologic: No recent easy bruising or bleeding or hematologic malignancy reported. Lymphatic: No recent lymphatic malignancy, chronic lymphadenopathy reported yet Cardiovascular system review: See history of present illness. Respiratory system review: No recent chronic cough, hemoptysis, blood clots in the lungs reported. Mild Shortness of breath on exertion Gastrointestinal system review: Negative for any recent acute or chronic abdominal pain, hematemesis, melena, recent change in bowel habits. Genitourinary system review: No recent acute or chronic hematuria, flank pain, UTI etc. reported. Skin system review: Negative for any recent abnormal bruising, no rash, no pruritus reported. Neurologic: No prior history of strokes, mini strokes, seizure disorder. Psychologic: No history of major psychosis or major depression reported. Musculoskeletal: Minor aches and pains reported. No acute joint swelling reported. Endocrine: No recent polyuria, polydipsia, recent heat or cold intolerance. Physical Exam Vital Signs: Temp Pulse Resp BP Pulse Ox 97.8 F 84 13 126/61 H 96 08/29/17 12:00 08/29/17 12:00 08/29/17 14:00 08/29/17 13:53 08/29/17 14:00 Intake & Output 08/28/17 08/29/17 08/30/17 06:59 06:59 06:59 Intake Total 2530 465 237 Output Total 1200 770 150 Balance 1330 -305 87 Weight 81.2 kg 80.6 kg Exam: GENERAL: well-nourished and in no acute distress. Alert and oriented x3 HEAD: Atraumatic, normocephalic. EYES: Pupils equal round and reactive to light, extraocular movements intact, sclera anicteric, conjunctiva are normal. ENT: TMs normal, nares patent, oropharynx clear without exudates. Moist mucous membranes. No oral ulcerations or bleeding gums noted NECK: supple without lymphadenopathy. Trachea is central. No cervical or axillary lymphadenopathy noted. Carotids are 2+, JVD WNL LUNGS: Respiration seems nonlabored, no significant accessory muscle action noted. Breath sounds clear to auscultation bilaterally and equal noted. No wheezes rales or rhonchi noted. No significant dullness noted on percussion. CHEST: Palpation of the chest wall shows no significant chest wall tenderness. No other significant abnormalities noted. 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 ABDOMEN: Soft, no significant tenderness appreciated, normoactive bowel sounds. No guarding, no rebound. No rigidity noted . No masses appreciated. EXTREMITIES: Pedal pulses are 1-2+, no calf tenderness noted. No clubbing or cyanosis.trace to 1+ pedal edema noted NEUROLOGICAL: Focused neurological exam showed no significant neurologic deficit. Normal speech, no focal weakness appreciated. PSYCH: Normal mood, normal affect. Judgment and insight within normal limits. SKIN: No significant ecchymosis, skin is noted to be warm. MUSCULOSKELETAL EXAM: No significant acute joint swelling noted. Results Laboratory Results: 08/29/17 03:28 08/29/17 03:28 08/29/17 08/29/17 03:28 03:28 WBC 9.6 RBC 4.99 Hgb 14.9 Hct 44.3 MCV 89 MCH 29.8 MCHC 33.6 RDW 13.4 Plt Count 191 Seg Neutrophils % 56.2 Lymphocytes % 30.5 Monocytes % 8.8 Eosinophils % 4.0 Basophils % 0.5 Absolute Neutrophils 5.4 Absolute Lymphocytes 2.9 Absolute Monocytes 0.8 Absolute Eosinophils 0.4 Absolute Basophils 0.0 Sodium 141.8 Potassium 4.1 Chloride 109 H Carbon Dioxide 21 L Anion Gap 12 BUN 26 H Creatinine 0.80 Est GFR ( Amer) > 60 Est GFR (Non-Af Amer) > 60 Glucose 109 Calcium 9.3 08/26/17 08/26/17 15:39 15:39 Creatine Kinase 55 CK-MB (CK-2) 1.07 Troponin I < 0.012 EKG Comments: Twelve-lead EKG shows sinus rhythm with ventricular couplets and non-specific ST -T wave changes Impressions: Chest X-Ray 08/25/17 00:00 IMPRESSION: No acute cardiopulmonary findings. Head CT 08/25/17 14:39 IMPRESSION: No acute findings EVIDENCE OF ACUTE STROKE: NO. Head MRI 08/25/17 19:36 IMPRESSION: ATROPHY AND CHRONIC MICRO-VASCULAR ISCHEMIC CHANGES. OTHERWISE NORMAL MRI OF THE BRAIN WITHOUT INTRAVENOUS GADOLINIUM CONTRAST. EVIDENCE OF ACUTE STROKE: NO. Vascular Ultrasound 08/29/17 00:00 IMPRESSION: NO DOPPLER EVIDENCE OF HEMODYNAMICALLY SIGNIFICANT RENAL ARTERY STENOSIS. Assessment & Plan - Diagnosis (1) Accelerated hypertension Is this a current diagnosis for this admission?: Yes (2) Wide-complex tachycardia Is this a current diagnosis for this admission?: Yes (3) Ventricular ectopy Is this a current diagnosis for this admission?: Yes (4) Vertigo Is this a current diagnosis for this admission?: Yes (5) Diabetes mellitus type 2 in obese Is this a current diagnosis for this admission?: Yes - Notes Notes: Accelerated hypertension: Agree with obtaining renal artery ultrasound. Recommend 24 hour urinary collection for catecholamine excretion. Agree with current attempts to manage hypertension. Wide-complex tachycardia: Rhythm strips were reviewed. Patient was noted to have intermittent sinus tachycardia with bundle branch block pattern. Do not think patient had any ventricular tachycardia. Available rhythm strips were reviewed. Increased ventricular ectopy: Could be related to severe hypertension, electrolyte imbalance, possible silent ischemia. At this point continue to observe patient. Vertigo: Patient describes positional vertigo. Possibly related to severe hypertension. Recommend meclizine on a trial basis. Orders were written. Diabetes: Recommend good control but avoid very tight controls. Will order a 2D echo and EKG for tomorrow. Further evaluation and management based on results of these tests. Addendum: Significant renal artery stenosis was ruled out by ultrasound. - Time Time Spent: 30 to 50 Minutes - CODE STATUS was discussed, patient remains full code. Surrogate decision-maker unchanged. Multiple medical problems were addressed. More than 50% of the time spent coordinating care, discussing management plans with involved caregivers. Management plans discussed with involved personnels. Medical decision making was of moderate to high complexity , patient's has multiple comorbidities. Medications reviewed and adjusted accordingly: Yes
[2017-08-29] MEDS: CARVEDILOL 6.25 MG TABLET PO SCH (17:50)
[2017-08-30] MEDS: PROMETHAZINE HCL INJ 25 MG/1 ML VIAL IV PRN (02:15)
[2017-08-30 06:26] LABS: ANION GAP 11 (5-19); BLOOD UREA NITROGEN 23 mg/dL (7-20); CALCIUM 9.6 mg/dL (8.4-10.2); CARBON DIOXIDE 22 mmol/L (22-30); CHLORIDE 110 mmol/L (98-107); GLUCOSE 119 mg/dL (75-110); POTASSIUM 4.3 mmol/L (3.6-5.0); SODIUM 142.5 mmol/L (137-145)
[2017-08-30] MEDS: CARVEDILOL 6.25 MG TABLET PO SCH ×2 (07:39→18:36)
[2017-08-30] MEDS: LANSOPRAZOLE 30 MG TAB.RAP.DR PO SCH (07:40)
--- NOTE | 2017-08-30 08:08 | PDOC PROGRESS REPORT ---
Subjective Progress Note for:: 08/30/17 Subjective:: Patient reported episodes of dizziness as room spinning. There is nausea and episode of vomiting yesterday. No chest pain or difficulty with breathing. No fever or chills. Reason For Visit: MALIGNANT HYPERTENSION Physical Exam Vital Signs: Temp Pulse Resp BP Pulse Ox 97.8 F 84 14 138/63 H 94 08/29/17 22:00 08/29/17 22:00 08/30/17 06:39 08/30/17 06:39 08/30/17 06:39 Intake & Output 08/29/17 08/30/17 08/31/17 06:59 06:59 06:59 Intake Total 465 506 Output Total 770 1200 Balance -305 -694 Weight 80.6 kg Results Laboratory Results: 08/29/17 03:28 08/30/17 05:54 08/30/17 05:54 Sodium 142.5 Potassium 4.3 Chloride 110 H Carbon Dioxide 22 Anion Gap 11 BUN 23 H Creatinine 0.72 Est GFR ( Amer) > 60 Est GFR (Non-Af Amer) > 60 Glucose 119 H Calcium 9.6 08/26/17 08/26/17 15:39 15:39 Creatine Kinase 55 CK-MB (CK-2) 1.07 Troponin I < 0.012 Impressions: Chest X-Ray 08/25/17 00:00 IMPRESSION: No acute cardiopulmonary findings. Head CT 08/25/17 14:39 IMPRESSION: No acute findings EVIDENCE OF ACUTE STROKE: NO. Head MRI 08/25/17 19:36 IMPRESSION: ATROPHY AND CHRONIC MICRO-VASCULAR ISCHEMIC CHANGES. OTHERWISE NORMAL MRI OF THE BRAIN WITHOUT INTRAVENOUS GADOLINIUM CONTRAST. EVIDENCE OF ACUTE STROKE: NO. Vascular Ultrasound 08/29/17 00:00 IMPRESSION: NO DOPPLER EVIDENCE OF HEMODYNAMICALLY SIGNIFICANT RENAL ARTERY STENOSIS. Assessment & Plan - Diagnosis (1) UTI (urinary tract infection) Qualifiers: Urinary tract infection type: acute cystitis Is this a current diagnosis for this admission?: Yes (2) Diabetes mellitus type 2 in obese Is this a current diagnosis for this admission?: Yes (3) Accelerated hypertension Is this a current diagnosis for this admission?: Yes (4) Balance problem Is this a current diagnosis for this admission?: Yes - Time Time Spent with patient: 25-34 minutes Medications reviewed and adjusted accordingly: Yes Anticipated discharge: Home with Homehealth Within: Other - Inpatient Certification Based on my medical assessment, after consideration of the patient's comorbidities, presenting symptoms, or acuity I expect that the services needed warrant INPATIENT care.: Yes I certify that my determination is in accordance with my understanding of Medicare's requirements for reasonable and necessary INPATIENT services [42 CFR 412.3e].: Yes Medical Necessity: Need Close Monitoring Due to Risk of Patient Decompensation, Need For Continuous Telemetry Monitoring, Risk of Complication if Not Cared For in Hospital 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 D/C Lisinopril.Start on Valsartan at 320 mg po daily. Maintain on all other current medication management. Patient is currently off IV Cardene infusion. Vascular ultrasiound did not show any significant renal artery stenosis.
--- NOTE | 2017-08-30 09:15 | EKG REPORT ---
SEVERITY:- ABNORMAL ECG - SINUS RHYTHM LVH WITH SECONDARY REPOLARIZATION ABNORMALITY : Confirmed by: Luis Alberto Hair 30-Aug-2017 09:14:47
[2017-08-30] MEDS: AMLODIPINE BESYLATE 10 MG TABLET PO SCH (10:54)
[2017-08-30] MEDS: METFORMIN HCL 500 MG TABLET PO SCH (10:55)
[2017-08-30] MEDS: ENOXAPARIN SODIUM INJ 40 MG/0.4 ML DISP.SYRIN SUBCUT SCH (10:55)
[2017-08-30] MEDS: VALSARTAN 160 MG TABLET PO SCH (10:56)
[2017-08-30] MEDS: CEFTRIAXONE SODIUM 1,000 MG in NORMAL SALINE 100 ML IV SCH (10:57)
[2017-08-30] MEDS: DOCUSATE SODIUM 100 MG CAPSULE PO SCH ×2 (10:57→22:20)
--- NOTE | 2017-08-30 13:16 | XCELERA REPORT ---
[address] [address] Transthoracic Echocardiogram Report Name: DEUCE SAAVEDRA Age: 86 yrs Gender: Female : 1930 Patient Status: Inpatient Patient Location: ICU^601^A Study Date: 08/30/2017 09:33 AM Height: 64 in Weight: 177 lb BSA: 1.9 m2 Procedure: A complete two-dimensional transthoracic echocardiogram was performed (2D, M-mode, spectral and color flow Doppler). The study was technically adequate with some images being suboptimal in quality. Reason For Study: Hypertension Ordering Physician: AZALEA GOMES Performed By: Tonie Gambino Interpretation Summary The left ventricular ejection fraction is normal. There is mild concentric left ventricular hypertrophy. The left ventricle is grossly normal size. Doppler measurements suggest pseudonormalized left ventricular relaxation, which is associated with grade II/IV or mild to moderate diastolic dysfunction Wall motion cannot be accurately commented on, but no definite regional wall motion abnormalities noted. Borderline right ventricular enlargement. The right atrium is borderline dilated. The left atrium is borderline dilated. There is a trace amount of mitral regurgitation There is no mitral valve stenosis. No aortic regurgitation is present. There is no aortic valve stenosis There is a trace or physiologic amount of tricuspid regurgitation Tricuspid regurgitation jet envelope not well defined to measure RV systolic pressure accurately. The aortic root is not well visualized but is probably normal size. The inferior vena cava appeared normal and decreased > 50% with respiration (RAP 5-10 mmHg) There is no pericardial effusion. MMode/2D Measurements & Calculations RVDd: 3.5 cm LVIDd: 3.5 cm FS: 40.3 % Ao root diam: 2.7 cm IVSd: 1.3 cm LVIDs: 2.1 cm EDV(Teich): 50.1 ml LVPWd: 1.2 cm ESV(Teich): 14.0 ml Ao root area: 5.6 cm2 EF(Teich): 72.0 % LA dimension: 3.7 cm Doppler Measurements & Calculations MV E max kory: MV P1/2t max kory: Ao V2 max: LV V1 max P.2 cm/sec 57.8 cm/sec 139.9 cm/sec 6.3 mmHg MV A max kory: MV P1/2t: 172.5 msec Ao max PG: LV V1 max: 100.7 cm/sec 7.8 mmHg 125.9 cm/sec MV E/A: 0.59 MVA(P1/2t): 1.3 cm2 MV dec slope: 98.0 cm/sec2 MV dec time: 0.57 sec PA V2 max: TR max kory: 103.2 cm/sec 240.3 cm/sec PA max P.3 mmHgTR max P.1 mmHg Left Ventricle The left ventricle is grossly normal size. There is mild concentric left ventricular hypertrophy. The left ventricular ejection fraction is normal. Doppler measurements suggest pseudonormalized left ventricular relaxation, which is associated with grade II/IV or mild to moderate diastolic dysfunction. Wall motion cannot be accurately commented on, but no definite regional wall motion abnormalities noted. Right Ventricle Borderline right ventricular enlargement. There is normal right ventricular wall thickness. The right ventricular systolic function is normal. Atria The right atrium is borderline dilated. The left atrium is borderline dilated. Interarterial septum not well visualized and not well dopplered. Cannot comment on ASD/PFO presence. Mitral Valve The mitral valve leaflets are sclerotic, but show no functional abnormalities. There is no mitral valve stenosis. There is a trace amount of mitral regurgitation. Aortic Valve The aortic valve is grossly normal. There is no aortic valve stenosis. No aortic regurgitation is present. Tricuspid Valve The tricuspid valve is not well visualized, but is grossly normal. There is no tricuspid stenosis. There is a trace or physiologic amount of tricuspid regurgitation. Tricuspid regurgitation jet envelope not well defined to measure RV systolic pressure accurately. Pulmonic Valve The pulmonic valve is not well visualized. Great Vessels The aortic root is not well visualized but is probably normal size. The inferior vena cava appeared normal and decreased > 50% with respiration (RAP 5-10 mmHg). Effusions There is no pericardial effusion. : AZALEA GOMES > Luis Alberto Hair
--- NOTE | 2017-08-30 19:53 | PDOC PROGRESS REPORT ---
Subjective Progress Note for:: 08/30/17 Subjective:: Patient seems to be doing significantly better with marked improvement in her dizziness. Pt is denying any chest arm or neck discomfort. Patient denying any PND, orthopnea. Patient denied any sustained palpitations, dizziness, syncope, near syncope. Patient denying any fever chills. Patient denying any other significant discomfort. Patient is maintaining sinus rhythm. Review of systems: Rest review of systems negative. Medications: Medications have been reviewed. Reason For Visit: MALIGNANT HYPERTENSION Physical Exam Vital Signs: Temp Pulse Resp BP Pulse Ox 98.0 F 69 18 138/125 H 96 08/30/17 16:00 08/30/17 16:00 08/30/17 18:19 08/30/17 18:19 08/30/17 18:19 Intake & Output 08/29/17 08/30/17 08/31/17 06:59 06:59 06:59 Intake Total 465 506 340 Output Total 770 1200 200 Balance -305 -694 140 Weight 80.6 kg Exam: GENERAL: well-nourished and in no acute distress. Alert and oriented x3 HEAD: Atraumatic, normocephalic. EYES: Pupils equal round and reactive to light, extraocular movements intact, sclera anicteric, conjunctiva are normal. ENT: TMs normal, nares patent, oropharynx clear without exudates. Moist mucous membranes. No oral ulcerations or bleeding gums noted NECK: supple without lymphadenopathy. Trachea is central. No cervical or axillary lymphadenopathy noted. Carotids are 2+, JVD WNL LUNGS: Respiration seems nonlabored, no significant accessory muscle action noted. Breath sounds clear to auscultation bilaterally and equal noted. No wheezes rales or rhonchi noted. No significant dullness noted on percussion. CHEST: Palpation of the chest wall shows no significant chest wall tenderness. No other significant abnormalities noted. 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 ABDOMEN: Soft, no significant tenderness appreciated, normoactive bowel sounds. No guarding, no rebound. No rigidity noted . No masses appreciated. EXTREMITIES: Pedal pulses are 1-2+, no calf tenderness noted. No clubbing or cyanosis.trace to 1+ pedal edema noted NEUROLOGICAL: Focused neurological exam showed no significant neurologic deficit. Normal speech, no focal weakness appreciated. PSYCH: Normal mood, normal affect. Judgment and insight within normal limits. SKIN: No significant ecchymosis, skin is noted to be warm. MUSCULOSKELETAL EXAM: No significant acute joint swelling noted. Results Laboratory Results: 08/29/17 03:28 08/30/17 05:54 08/30/17 05:54 Sodium 142.5 Potassium 4.3 Chloride 110 H Carbon Dioxide 22 Anion Gap 11 BUN 23 H Creatinine 0.72 Est GFR ( Amer) > 60 Est GFR (Non-Af Amer) > 60 Glucose 119 H Calcium 9.6 08/26/17 08/26/17 15:39 15:39 Creatine Kinase 55 CK-MB (CK-2) 1.07 Troponin I < 0.012 EKG Comments: Telemetry strips shows sinus rhythm with occasional APCs and VPCs. Impressions: Chest X-Ray 08/25/17 00:00 IMPRESSION: No acute cardiopulmonary findings. Head CT 08/25/17 14:39 IMPRESSION: No acute findings EVIDENCE OF ACUTE STROKE: NO. Head MRI 08/25/17 19:36 IMPRESSION: ATROPHY AND CHRONIC MICRO-VASCULAR ISCHEMIC CHANGES. OTHERWISE NORMAL MRI OF THE BRAIN WITHOUT INTRAVENOUS GADOLINIUM CONTRAST. EVIDENCE OF ACUTE STROKE: NO. Vascular Ultrasound 08/29/17 00:00 IMPRESSION: NO DOPPLER EVIDENCE OF HEMODYNAMICALLY SIGNIFICANT RENAL ARTERY STENOSIS. Assessment & Plan - Diagnosis (1) Accelerated hypertension Is this a current diagnosis for this admission?: Yes (2) Wide-complex tachycardia Is this a current diagnosis for this admission?: Yes (3) Ventricular ectopy Is this a current diagnosis for this admission?: Yes (4) Vertigo Is this a current diagnosis for this admission?: Yes (5) Diabetes mellitus type 2 in obese Is this a current diagnosis for this admission?: Yes - Notes Notes: Accelerated hypertension: Blood pressure under better control. Renal ultrasound was negative for renal artery stenosis. Wide-complex tachycardia: Rhythm strips were reviewed. Patient was noted to have intermittent sinus tachycardia with bundle branch block pattern. Do not think patient had any ventricular tachycardia. Available rhythm strips were reviewed. No recurrence noted. Increased ventricular ectopy: Could be related to severe hypertension, electrolyte imbalance, possible silent ischemia. At this point continue to observe patient. Vertigo: Patient describes positional vertigo. Possibly related to severe hypertension. Recommend meclizine on a trial basis. Orders were written. Diabetes: Recommend good control but avoid very tight controls. 2D echo results reviewed. It shows normal LVEF. Further evaluation and management based on results of these tests. Will consider a nuclear stress test prior to discharge or as an outpatient. This is because of increased ventricular ectopy.. - Time Time with patient: Greater than 35 minutes - CODE STATUS was discussed, patient remains full code. Surrogate decision-maker patient's . Multiple medical problems were addressed. More than 50% of the time spent coordinating care, discussing management plans with involved caregivers. Management plans discussed with involved personnels. Medical decision making was of moderate to high complexity, patient's has multiple comorbidities. Medications reviewed and adjusted accordingly: Yes
[2017-08-31] MEDS: HYDRALAZINE HCL INJ/PF 20 MG/1 ML SDV IV PRN ×2 (01:41→20:15)
[2017-08-31 04:08] LABS: HEMATOCRIT 42.5 % (36.0-47.0); HEMOGLOBIN 14.2 g/dL (12.0-15.5); MEAN CORPUSCULAR HEMOGLOBIN 29.8 pg (27.0-33.4); MEAN CORPUSCULAR HGB CONC 33.5 g/dL (32.0-36.0); MEAN CORPUSCULAR VOLUME 89 fl (80-97); PLATELET COUNT 221 10^3/uL (150-450); RED BLOOD COUNT 4.77 10^6/uL (3.72-5.28); RED CELL DISTRIBUTION WIDTH 13.4 % (11.5-14.0); WHITE BLOOD COUNT 9.3 10^3/uL (4.0-10.5)
[2017-08-31 04:22] LABS: ANION GAP 10 (5-19); BLOOD UREA NITROGEN 26 mg/dL (7-20); CARBON DIOXIDE 21 mmol/L (22-30); CHLORIDE 109 mmol/L (98-107); GLUCOSE 102 mg/dL (75-110); POTASSIUM 4.4 mmol/L (3.6-5.0); SODIUM 139.9 mmol/L (137-145)
[2017-08-31] MEDS: CARVEDILOL 6.25 MG TABLET PO SCH ×2 (06:51→18:10)
[2017-08-31] MEDS: LANSOPRAZOLE 30 MG TAB.RAP.DR PO SCH (06:51)
--- NOTE | 2017-08-31 07:38 | PDOC PROGRESS REPORT ---
Subjective Progress Note for:: 08/31/17 Subjective:: Patient denied chest pain or difficulty with breathing. There was one time need for IV Hydralazine overnight due to sbp > 160mmHg with agitation and restlessness from inability to fall asleep. She denied recurring vertigo, dizziness, nausea or vomiting yesterday. No fever or chills. Reason For Visit: MALIGNANT HYPERTENSION Physical Exam Vital Signs: Temp Pulse Resp BP Pulse Ox 97.9 F 70 14 128/68 H 96 08/31/17 07:02 08/31/17 07:02 08/31/17 07:02 08/31/17 07:02 08/31/17 07:02 Intake & Output 08/30/17 08/31/17 09/01/17 06:59 06:59 06:59 Intake Total 506 460 Output Total 1200 850 Balance -694 -390 Weight 81.1 kg Physical Exam: General appearance: PRESENT: no acute distress, well-developed, well-nourished Eye exam: PRESENT: conjunctiva pink, EOMI, PERRLA. ABSENT: scleral icterus Mouth exam: PRESENT: moist Respiratory exam: PRESENT: clear to auscultation carlin Cardiovascular exam: PRESENT: RRR. ABSENT: diastolic murmur, rubs, systolic murmur GI/Abdominal exam: PRESENT: normal bowel sounds, soft. ABSENT: distended, guarding, mass, organomegaly, rebound, tenderness Extremities exam: ABSENT: pedal edema Neurological exam: PRESENT: alert, awake, oriented to person, oriented to place , oriented to time, oriented to situation, CN II-XII grossly intact. ABSENT: motor sensory deficit Skin exam: PRESENT: dry, intact, warm. ABSENT: cyanosis, rash Results Laboratory Results: 08/31/17 03:39 08/31/17 03:39 08/31/17 08/31/17 03:39 03:39 WBC 9.3 RBC 4.77 Hgb 14.2 Hct 42.5 MCV 89 MCH 29.8 MCHC 33.5 RDW 13.4 Plt Count 221 Sodium 139.9 Potassium 4.4 Chloride 109 H Carbon Dioxide 21 L Anion Gap 10 BUN 26 H Creatinine 0.77 Est GFR ( Amer) > 60 Est GFR (Non-Af Amer) > 60 Glucose 102 Calcium 9.0 Magnesium 1.8 08/26/17 08/26/17 15:39 15:39 Creatine Kinase 55 CK-MB (CK-2) 1.07 Troponin I < 0.012 Impressions: Chest X-Ray 08/25/17 00:00 IMPRESSION: No acute cardiopulmonary findings. Head CT 08/25/17 14:39 IMPRESSION: No acute findings EVIDENCE OF ACUTE STROKE: NO. Head MRI 08/25/17 19:36 IMPRESSION: ATROPHY AND CHRONIC MICRO-VASCULAR ISCHEMIC CHANGES. OTHERWISE NORMAL MRI OF THE BRAIN WITHOUT INTRAVENOUS GADOLINIUM CONTRAST. EVIDENCE OF ACUTE STROKE: NO. Vascular Ultrasound 08/29/17 00:00 IMPRESSION: NO DOPPLER EVIDENCE OF HEMODYNAMICALLY SIGNIFICANT RENAL ARTERY STENOSIS. Assessment & Plan - Diagnosis (1) UTI (urinary tract infection) Qualifiers: Urinary tract infection type: acute cystitis Is this a current diagnosis for this admission?: Yes (2) Diabetes mellitus type 2 in obese Is this a current diagnosis for this admission?: Yes (3) Accelerated hypertension Is this a current diagnosis for this admission?: Yes (4) Balance problem Is this a current diagnosis for this admission?: Yes - Time Time Spent with patient: 25-34 minutes Medications reviewed and adjusted accordingly: Yes Anticipated discharge: Home with Homehealth Within: within 24 hours - Inpatient Certification Based on my medical assessment, after consideration of the patient's comorbidities, presenting symptoms, or acuity I expect that the services needed warrant INPATIENT care.: Yes I certify that my determination is in accordance with my understanding of Medicare's requirements for reasonable and necessary INPATIENT services [42 CFR 412.3e].: Yes Medical Necessity: Need Close Monitoring Due to Risk of Patient Decompensation, Need For Continuous Telemetry Monitoring, Risk of Complication if Not Cared For in Hospital 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 PT evaluation of ambulatory safety. Continue all other current management. Possible d/c in next 24 hours.
[2017-08-31] MEDS: AMLODIPINE BESYLATE 10 MG TABLET PO SCH (11:26)
[2017-08-31] MEDS: ENOXAPARIN SODIUM INJ 40 MG/0.4 ML DISP.SYRIN SUBCUT SCH (11:26)
[2017-08-31] MEDS: VALSARTAN 160 MG TABLET PO SCH (11:27)
[2017-08-31] MEDS: DOCUSATE SODIUM 100 MG CAPSULE PO SCH ×2 (11:27→21:13)
[2017-08-31] MEDS: METFORMIN HCL 500 MG TABLET PO SCH (11:28)
--- NOTE | 2017-08-31 12:08 | PDOC PROGRESS REPORT ---
Subjective Progress Note for:: 08/31/17 Subjective:: Patient seems to be doing significantly better with marked improvement in her dizziness. Pt is denying any chest arm or neck discomfort. Patient denying any PND, orthopnea. Patient denied any sustained palpitations, dizziness, syncope, near syncope. Patient denying any fever chills. Patient denying any other significant discomfort. Blood pressure seems much improved. Patient is maintaining sinus rhythm. Review of systems: Rest review of systems negative. Medications: Medications have been reviewed. Reason For Visit: MALIGNANT HYPERTENSION Physical Exam Vital Signs: Temp Pulse Resp BP Pulse Ox 97.9 F 70 14 133/62 H 96 08/31/17 07:02 08/31/17 07:02 08/31/17 07:20 08/31/17 07:20 08/31/17 07:20 Intake & Output 08/30/17 08/31/17 09/01/17 06:59 06:59 06:59 Intake Total 506 460 Output Total 1200 850 Balance -694 -390 Weight 81.1 kg Exam: GENERAL: well-nourished and in no acute distress. Alert and oriented x3 HEAD: Atraumatic, normocephalic. EYES: Pupils equal round and reactive to light, extraocular movements intact, sclera anicteric, conjunctiva are normal. ENT: TMs normal, nares patent, oropharynx clear without exudates. Moist mucous membranes. No oral ulcerations or bleeding gums noted NECK: supple without lymphadenopathy. Trachea is central. No cervical or axillary lymphadenopathy noted. Carotids are 2+, JVD WNL LUNGS: Respiration seems nonlabored, no significant accessory muscle action noted. Breath sounds clear to auscultation bilaterally and equal noted. No wheezes rales or rhonchi noted. No significant dullness noted on percussion. CHEST: Palpation of the chest wall shows no significant chest wall tenderness. No other significant abnormalities noted. 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 ABDOMEN: Soft, no significant tenderness appreciated, normoactive bowel sounds. No guarding, no rebound. No rigidity noted . No masses appreciated. EXTREMITIES: Pedal pulses are 1-2+, no calf tenderness noted. No clubbing or cyanosis.trace to 1+ pedal edema noted NEUROLOGICAL: Focused neurological exam showed no significant neurologic deficit. Normal speech, no focal weakness appreciated. PSYCH: Normal mood, normal affect. Judgment and insight within normal limits. SKIN: No significant ecchymosis, skin is noted to be warm. MUSCULOSKELETAL EXAM: No significant acute joint swelling noted. Results Laboratory Results: 08/31/17 03:39 08/31/17 03:39 08/31/17 08/31/17 03:39 03:39 WBC 9.3 RBC 4.77 Hgb 14.2 Hct 42.5 MCV 89 MCH 29.8 MCHC 33.5 RDW 13.4 Plt Count 221 Sodium 139.9 Potassium 4.4 Chloride 109 H Carbon Dioxide 21 L Anion Gap 10 BUN 26 H Creatinine 0.77 Est GFR ( Amer) > 60 Est GFR (Non-Af Amer) > 60 Glucose 102 Calcium 9.0 Magnesium 1.8 08/26/17 08/26/17 15:39 15:39 Creatine Kinase 55 CK-MB (CK-2) 1.07 Troponin I < 0.012 Impressions: Chest X-Ray 08/25/17 00:00 IMPRESSION: No acute cardiopulmonary findings. Head CT 08/25/17 14:39 IMPRESSION: No acute findings EVIDENCE OF ACUTE STROKE: NO. Head MRI 08/25/17 19:36 IMPRESSION: ATROPHY AND CHRONIC MICRO-VASCULAR ISCHEMIC CHANGES. OTHERWISE NORMAL MRI OF THE BRAIN WITHOUT INTRAVENOUS GADOLINIUM CONTRAST. EVIDENCE OF ACUTE STROKE: NO. Vascular Ultrasound 08/29/17 00:00 IMPRESSION: NO DOPPLER EVIDENCE OF HEMODYNAMICALLY SIGNIFICANT RENAL ARTERY STENOSIS. Assessment & Plan - Diagnosis (1) Accelerated hypertension Is this a current diagnosis for this admission?: Yes (2) Wide-complex tachycardia Is this a current diagnosis for this admission?: Yes (3) Ventricular ectopy Is this a current diagnosis for this admission?: Yes (4) Vertigo Is this a current diagnosis for this admission?: Yes (5) Diabetes mellitus type 2 in obese Is this a current diagnosis for this admission?: Yes - Notes Notes: Nuclear stress test scheduled. 2D echo results reviewed. Accelerated hypertension: Blood pressure under better control. Renal ultrasound was negative for renal artery stenosis. Blood pressure today has been stable. Wide-complex tachycardia: Rhythm strips were reviewed. Patient was noted to have intermittent sinus tachycardia with bundle branch block pattern. Do not think patient had any ventricular tachycardia. Available rhythm strips were reviewed. No recurrence noted. Increased ventricular ectopy: Could be related to severe hypertension, electrolyte imbalance, possible silent ischemia. At this point continue to observe patient. Vertigo: Patient describes positional vertigo. Possibly related to severe hypertension. Recommend meclizine on a trial basis. Orders were written. Diabetes: Recommend good control but avoid very tight controls. 2D echo results reviewed. It shows normal LVEF. Further evaluation and management based on results of these tests. Will consider a nuclear stress test prior to discharge or as an outpatient. However patient prefers this to be done as an inpatient. We will therefore schedule a stress test this is because of increased ventricular ectopy and wide- complex tachycardia as well as intermittent left bundle branch block pattern noted on monitor strips. - Time Time with patient: 15-25 minutes - CODE STATUS was discussed, patient remains full code. Surrogate decision-maker unchanged. Multiple medical problems were addressed. More than 50% of the time spent coordinating care, discussing management plans with involved caregivers. Management plans discussed with involved personnels. Medical decision making was of moderate to high complexity , patient's has multiple comorbidities. Medications reviewed and adjusted accordingly: Yes
[2017-08-31] MEDS ORDERED: DEXTROSE 40% GEL 15 GM TUBE PO PRN (19:30)
[2017-08-31] MEDS ORDERED: DEXTROSE 50%-WATER 25 GM/50 ML DISP.SYRIN IV PRN ×2 (19:30)
[2017-08-31] MEDS ORDERED: GLUCAGON,HUMAN RECOMB 1 MG INJ SUBCUT PRN (19:30)
[2017-09-01] MEDS: LANSOPRAZOLE 30 MG TAB.RAP.DR PO SCH (05:31)
[2017-09-01] MEDS: CARVEDILOL 6.25 MG TABLET PO SCH ×2 (05:31→18:15)
--- NOTE | 2017-09-01 08:39 | PDOC PROGRESS REPORT ---
Subjective Progress Note for:: 09/01/17 Subjective:: She denied chest pain or difficulty with breathing. She is schedule for pharmacological stress testing today. She denied dizziness, vertigo, nausea or vomiting yesterday. No fever or chills. Reason For Visit: MALIGNANT HYPERTENSION Physical Exam Vital Signs: Temp Pulse Resp BP Pulse Ox 98.0 F 67 12 148/65 H 94 09/01/17 08:09 09/01/17 08:09 09/01/17 08:09 09/01/17 08:09 09/01/17 08:09 Intake & Output 08/31/17 09/01/17 09/02/17 06:59 06:59 06:59 Intake Total 460 780 Output Total 850 Balance -390 780 Weight 81.1 kg Physical Exam: General appearance: PRESENT: no acute distress, well-developed, well-nourished, severe hearing impaired. Eye exam: PRESENT: conjunctiva pink, EOMI, PERRLA. ABSENT: scleral icterus Mouth exam: PRESENT: moist Respiratory exam: PRESENT: clear to auscultation carlin Cardiovascular exam: PRESENT: RRR. ABSENT: diastolic murmur, rubs, systolic murmur GI/Abdominal exam: PRESENT: normal bowel sounds, soft. ABSENT: distended, guarding, mass, organomegaly, rebound, tenderness Extremities exam: ABSENT: pedal edema Neurological exam: PRESENT: alert, awake, oriented to person, oriented to place , oriented to time, oriented to situation, CN II-XII grossly intact. ABSENT: motor sensory deficit Skin exam: PRESENT: dry, intact, warm. ABSENT: cyanosis, rash Results Laboratory Results: 08/31/17 03:39 08/31/17 03:39 08/26/17 08/26/17 15:39 15:39 Creatine Kinase 55 CK-MB (CK-2) 1.07 Troponin I < 0.012 Impressions: Chest X-Ray 08/25/17 00:00 IMPRESSION: No acute cardiopulmonary findings. Head CT 08/25/17 14:39 IMPRESSION: No acute findings EVIDENCE OF ACUTE STROKE: NO. Head MRI 08/25/17 19:36 IMPRESSION: ATROPHY AND CHRONIC MICRO-VASCULAR ISCHEMIC CHANGES. OTHERWISE NORMAL MRI OF THE BRAIN WITHOUT INTRAVENOUS GADOLINIUM CONTRAST. EVIDENCE OF ACUTE STROKE: NO. Vascular Ultrasound 08/29/17 00:00 IMPRESSION: NO DOPPLER EVIDENCE OF HEMODYNAMICALLY SIGNIFICANT RENAL ARTERY STENOSIS. Assessment & Plan - Diagnosis (1) UTI (urinary tract infection) Qualifiers: Urinary tract infection type: acute cystitis Is this a current diagnosis for this admission?: Yes (2) Diabetes mellitus type 2 in obese Is this a current diagnosis for this admission?: Yes (3) Accelerated hypertension Is this a current diagnosis for this admission?: Yes (4) Balance problem Is this a current diagnosis for this admission?: Yes - Time Time Spent with patient: 25-34 minutes Medications reviewed and adjusted accordingly: Yes Anticipated discharge: Home with Homehealth Within: Other - Inpatient Certification Based on my medical assessment, after consideration of the patient's comorbidities, presenting symptoms, or acuity I expect that the services needed warrant INPATIENT care.: Yes I certify that my determination is in accordance with my understanding of Medicare's requirements for reasonable and necessary INPATIENT services [42 CFR 412.3e].: Yes Medical Necessity: Need Close Monitoring Due to Risk of Patient Decompensation, Need For Continuous Telemetry Monitoring, Risk of Complication if Not Cared For in Hospital 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 Obtain BMP. Consider adding HCTZ to anti-HTN regimen. There is persistent bradycardia, probable due to CCB and Beta shiv combination.
[2017-09-01] MEDS: ENOXAPARIN SODIUM INJ 40 MG/0.4 ML DISP.SYRIN SUBCUT SCH (11:01)
[2017-09-01] MEDS: VALSARTAN 160 MG TABLET PO SCH (11:01)
[2017-09-01] MEDS: METFORMIN HCL 500 MG TABLET PO SCH (11:02)
[2017-09-01] MEDS: DOCUSATE SODIUM 100 MG CAPSULE PO SCH ×2 (11:02→22:03)
[2017-09-01] MEDS: AMLODIPINE BESYLATE 10 MG TABLET PO SCH (11:02)
[2017-09-01] MEDS ORDERED: REGADENOSON INJ 0.4 MG/5 ML DISP.SYRIN IV ONE (14:38)
[2017-09-01] MEDS ORDERED: AMINOPHYLLINE INJ/PF 250 MG/10 ML SDV IV ONE (14:38)
--- NOTE | 2017-09-01 15:05 | DRAGON STRESS TEST REPORT ---
INTRAVENOUS LEXISCAN CARDIOLITE STRESS TEST USING SINGLE PHOTON EMMISION COMPUTERIZED TOMOGRAPHIC. DATE OF PROCEDURE: September 01, 2017, INDICATION : Wide-complex tachycardia, frequent ventricular ectopy CARDIAC RISK FACTORS: Diabetes, hypertension RESTING EKG: Sinus rhythm with incomplete left bundle branch block pattern. STRESS EKG: Patient developed complete left bundle branch block pattern with pharmacologic stress agent. REASON FOR TERMINATION: Protocol. PROCEDURE REPORT: Baseline heart rate 63 beats per minute with blood pressure of 198/78. Patient had no significant complaints. Heart rate at 2 minutes post bolus 91 with a blood pressure of 153/65. 3 minutes post bolus heart rate 83 with blood pressure of 144/61. No significant EKG changes were noted. Patient had no significant complaints during the procedure or postprocedure. Patient injected with Aminophyllin 75 mg at 3 minutes or later after Lexiscan bolus. CONCLUSIONS: Normal EKG and hemodynamic response to IV LexiScan. NUCLEAR DATA: At rest the patient was given 13.24 millicuries of technetium 99 sestamibi injected intravenously. As per protocol rest gated SPECT images were obtained. On day of stress test, the patient was given intravenous LexiScan at a dose of 0.4 mg in 5 mL intravenously, followed by flush with normal saline. Subsequently the stress dose of 36.6 millicuries of technetium 99 sestamibi was injected intravenously. As per protocol stress gated images were obtained. NUCLEAR INTERPRETATION: Both raw and processed data were used for interpretation. Visual, qualitative, computer-generated quantitative data was used. There was good myocardial uptake of technetium compound. Motion artifact and soft tissue attenuations were noted. Increased visceral uptake was noted. No definitive areas of transient perfusion defect noted, No definitive areas of fixed perfusion defect or scars noted. EKG gated imaging showed LV EF at 64 %, rest and stress gated EF similar visually. T. I D. ratio was 0.86. Lung heart ratio noted to be within normal limits 0.26. No significant extracardiac and abnormal radiotracer activities were noted. RV free wall uptake was noted to be WNL. IMPRESSION: Also refer to comments under nuclear interpretation. Also test results needs to be interpreted in the context of pretest probability. 1. No definitive areas of transient perfusion defect noted. 2. There is no definitive scintigraphic evidence of myocardial infarction/scar. 3. EKG gated imaging shows left ventricular ejection fraction of approx. 64 %. 4. Clinical correlation requested as occasionally single vessel disease or balanced ischemia could be missed. In approximately 10% of the cases Lexiscan may not cause adequate vasodilatory stress. RECOMMENDATIONS: Aggressive risk factor modification and medical management. Further evaluation may be needed if continued symptoms or other high risk indicators are noted on clinical evaluation. Close cardiology follow-up is also recommended. Clinical correlation with echocardiogram derived ejection fraction. Inability to exercise by itself can lead to increased cardiovascular event risks. Consider cardiology consultation and or follow-up if clinically indicated. I am available for cardiology evaluation and consultation if requested by the ultrasonic solderer, unless patient already has a residential roofer helper. ROBERT
[2017-09-02] MEDS: CARVEDILOL 6.25 MG TABLET PO SCH (05:25)
[2017-09-02] MEDS: LANSOPRAZOLE 30 MG TAB.RAP.DR PO SCH (05:25)
[2017-09-02] MEDS: ENOXAPARIN SODIUM INJ 40 MG/0.4 ML DISP.SYRIN SUBCUT SCH (09:41)
[2017-09-02] MEDS: VALSARTAN 160 MG TABLET PO SCH (09:42)
[2017-09-02] MEDS: AMLODIPINE BESYLATE 10 MG TABLET PO SCH (09:42)
[2017-09-02] MEDS: DOCUSATE SODIUM 100 MG CAPSULE PO SCH ×2 (09:42→20:54)
[2017-09-02] MEDS: METFORMIN HCL 500 MG TABLET PO SCH (09:43)
[2017-09-02] MEDS ORDERED: DOXAZOSIN MESYLATE 2 MG TABLET PO SCH (10:00)
[2017-09-02] MEDS ORDERED: DOXAZOSIN MESYLATE 1 MG TABLET PO SCH (10:00)
--- NOTE | 2017-09-02 19:07 | PDOC PROGRESS REPORT ---
Subjective Progress Note for:: 09/02/17 Subjective:: No chest pain or difficulty with breathing. Blood pressure control remain challenging. No dizziness, vertigo, nausea or vomiting yesterday. No fever or chills. Reason For Visit: MALIGNANT HYPERTENSION Physical Exam Vital Signs: Temp Pulse Resp BP Pulse Ox 97.7 F 73 20 129/56 H 95 09/02/17 15:41 09/02/17 15:41 09/02/17 15:41 09/02/17 15:41 09/02/17 15:41 Intake & Output 09/01/17 09/02/17 09/03/17 06:59 06:59 06:59 Intake Total 780 1072 490 Balance 780 1072 490 Weight 81.1 kg 81.1 kg Physical Exam: General appearance: PRESENT: no acute distress, well-developed, well-nourished, severe hearing impaired. Eye exam: PRESENT: conjunctiva pink, EOMI, PERRLA. ABSENT: scleral icterus Mouth exam: PRESENT: moist Respiratory exam: PRESENT: clear to auscultation carlin Cardiovascular exam: PRESENT: RRR. ABSENT: diastolic murmur, rubs, systolic murmur GI/Abdominal exam: PRESENT: normal bowel sounds, soft. ABSENT: distended, guarding, mass, organomegaly, rebound, tenderness Extremities exam: ABSENT: pedal edema Neurological exam: PRESENT: alert, awake, oriented to person, oriented to place , oriented to time, oriented to situation, CN II-XII grossly intact. ABSENT: motor sensory deficit Skin exam: PRESENT: dry, intact, warm. ABSENT: cyanosis, rash Results Laboratory Results: 08/31/17 03:39 08/31/17 03:39 08/26/17 08/26/17 15:39 15:39 Creatine Kinase 55 CK-MB (CK-2) 1.07 Troponin I < 0.012 Impressions: Chest X-Ray 08/25/17 00:00 IMPRESSION: No acute cardiopulmonary findings. Head CT 08/25/17 14:39 IMPRESSION: No acute findings EVIDENCE OF ACUTE STROKE: NO. Head MRI 08/25/17 19:36 IMPRESSION: ATROPHY AND CHRONIC MICRO-VASCULAR ISCHEMIC CHANGES. OTHERWISE NORMAL MRI OF THE BRAIN WITHOUT INTRAVENOUS GADOLINIUM CONTRAST. EVIDENCE OF ACUTE STROKE: NO. Vascular Ultrasound 08/29/17 00:00 IMPRESSION: NO DOPPLER EVIDENCE OF HEMODYNAMICALLY SIGNIFICANT RENAL ARTERY STENOSIS. Assessment & Plan - Diagnosis (1) UTI (urinary tract infection) Qualifiers: Urinary tract infection type: acute cystitis Is this a current diagnosis for this admission?: Yes (2) Diabetes mellitus type 2 in obese Is this a current diagnosis for this admission?: Yes (3) Accelerated hypertension Is this a current diagnosis for this admission?: Yes (4) Balance problem Is this a current diagnosis for this admission?: Yes - Time Time Spent with patient: 25-34 minutes Medications reviewed and adjusted accordingly: Yes Anticipated discharge: Home Within: Other - Inpatient Certification Based on my medical assessment, after consideration of the patient's comorbidities, presenting symptoms, or acuity I expect that the services needed warrant INPATIENT care.: Yes I certify that my determination is in accordance with my understanding of Medicare's requirements for reasonable and necessary INPATIENT services [42 CFR 412.3e].: Yes Medical Necessity: Need Close Monitoring Due to Risk of Patient Decompensation, Need For Continuous Telemetry Monitoring, Risk of Complication if Not Cared For in Hospital Post Hospital Care: D/C Gold Charmer Documentation - Plan Summary Plan Summary: D/C Coreg due to persistent bradycardia. Start on Cardura 1mg po daily. Continue on all other current anti-HTN medication management.
--- NOTE | 2017-09-02 20:37 | PDOC PROGRESS REPORT ---
Subjective Progress Note for:: 09/02/17 Subjective:: Patient seems to be doing significantly better with marked improvement in her dizziness. Pt is denying any chest arm or neck discomfort. Patient denying any PND, orthopnea. Patient denied any sustained palpitations, dizziness, syncope, near syncope. Patient denying any fever chills. Patient denying any other significant discomfort. Blood pressure seems much improved. Patient is maintaining sinus rhythm. Patient switched over to Cardura because of bradycardia. Review of systems: Rest review of systems negative. Medications: Medications have been reviewed. Reason For Visit: MALIGNANT HYPERTENSION Physical Exam Vital Signs: Temp Pulse Resp BP Pulse Ox 98.1 F 79 18 208/98 H 100 09/02/17 20:16 09/02/17 20:16 09/02/17 20:16 09/02/17 20:16 09/02/17 20:16 Intake & Output 09/01/17 09/02/17 09/03/17 06:59 06:59 06:59 Intake Total 780 1072 490 Balance 780 1072 490 Weight 81.1 kg 81.1 kg Exam: GENERAL: well-nourished and in no acute distress. Alert and oriented x3 HEAD: Atraumatic, normocephalic. EYES: Pupils equal round and reactive to light, extraocular movements intact, sclera anicteric, conjunctiva are normal. ENT: TMs normal, nares patent, oropharynx clear without exudates. Moist mucous membranes. No oral ulcerations or bleeding gums noted NECK: supple without lymphadenopathy. Trachea is central. No cervical or axillary lymphadenopathy noted. Carotids are 2+, JVD WNL LUNGS: Respiration seems nonlabored, no significant accessory muscle action noted. Breath sounds clear to auscultation bilaterally and equal noted. No wheezes rales or rhonchi noted. No significant dullness noted on percussion. CHEST: Palpation of the chest wall shows no significant chest wall tenderness. No other significant abnormalities noted. 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 ABDOMEN: Soft, no significant tenderness appreciated, normoactive bowel sounds. No guarding, no rebound. No rigidity noted . No masses appreciated. EXTREMITIES: Pedal pulses are 1-2+, no calf tenderness noted. No clubbing or cyanosis.trace to 1+ pedal edema noted NEUROLOGICAL: Focused neurological exam showed no significant neurologic deficit. Normal speech, no focal weakness appreciated. PSYCH: Normal mood, normal affect. Judgment and insight within normal limits. SKIN: No significant ecchymosis, skin is noted to be warm. MUSCULOSKELETAL EXAM: No significant acute joint swelling noted. Results Laboratory Results: 08/31/17 03:39 08/31/17 03:39 08/26/17 08/26/17 15:39 15:39 Creatine Kinase 55 CK-MB (CK-2) 1.07 Troponin I < 0.012 Impressions: Chest X-Ray 08/25/17 00:00 IMPRESSION: No acute cardiopulmonary findings. Head CT 08/25/17 14:39 IMPRESSION: No acute findings EVIDENCE OF ACUTE STROKE: NO. Head MRI 08/25/17 19:36 IMPRESSION: ATROPHY AND CHRONIC MICRO-VASCULAR ISCHEMIC CHANGES. OTHERWISE NORMAL MRI OF THE BRAIN WITHOUT INTRAVENOUS GADOLINIUM CONTRAST. EVIDENCE OF ACUTE STROKE: NO. Vascular Ultrasound 08/29/17 00:00 IMPRESSION: NO DOPPLER EVIDENCE OF HEMODYNAMICALLY SIGNIFICANT RENAL ARTERY STENOSIS. Assessment & Plan - Diagnosis (1) Accelerated hypertension Is this a current diagnosis for this admission?: Yes (2) Wide-complex tachycardia Is this a current diagnosis for this admission?: Yes (3) Ventricular ectopy Is this a current diagnosis for this admission?: Yes (4) Vertigo Is this a current diagnosis for this admission?: Yes (5) Diabetes mellitus type 2 in obese Is this a current diagnosis for this admission?: Yes - Notes Notes: Nuclear stress test was negative for any pharmacologic stress-induced ischemia. Blood pressure being gradually brought under control. Dr. Mayers managing antihypertensive therapy. Dizziness and giddiness much improved. - Time Time with patient: 15-25 minutes Medications reviewed and adjusted accordingly: Yes
[2017-09-02] MEDS: HYDRALAZINE HCL INJ/PF 20 MG/1 ML SDV IV PRN (20:53)
[2017-09-03] MEDS: LANSOPRAZOLE 30 MG TAB.RAP.DR PO SCH (06:06)
--- NOTE | 2017-09-03 08:36 | PDOC DISCHARGE SUMMARY ---
General - Admit/Disc Date/PCP Admission Date/Primary Care Provider: 08/25/17 22:45 FLORENTINORHETT FAN Discharge Date: 09/03/17 - Discharge Diagnosis (1) UTI (urinary tract infection) Is this a current diagnosis for this admission?: Yes (2) Diabetes mellitus type 2 in obese Is this a current diagnosis for this admission?: Yes (3) Accelerated hypertension Is this a current diagnosis for this admission?: Yes (4) Balance problem Is this a current diagnosis for this admission?: Yes - Additional Information Resuscitation Status: Full Code Prescriptions: Amlodipine Besylate/Valsartan [Amlodipine-Valsartan 10-320 mg] 1 each PO DAILY # 30 tablet Terazosin HCl 1 mg PO BID #60 capsule Home Medications: Fluticasone Propionate 1 spray NASL DAILY 08/25/17 Metformin HCl 500 mg PO DAILY 08/25/17 Amlodipine Besylate/Valsartan [Amlodipine-Valsartan 10-320 mg] 1 each PO DAILY # 30 tablet 09/03/17 Terazosin HCl 1 mg PO BID #60 capsule 09/03/17 History of Present Illness History of Present Illness: DEUCE SAAVEDRA is a 86 year old female known to my practice who presented to the ED with new onset of dizziness while walking, nausea and vomiting while walking. Patient states when she woke up this morning to use the bathroom she became really dizzy and decided to lay back down. She reported inability to tolerate her breakfast prior to coming to the ED due to associated nause and vomiting that started after her initial episode of dizziness. She was found to have significantly elevated blood pressure upon arrival in the ED as pre recorded vitals. There was persistence of dizziness, particularly worsen with any attempts at walking. Her evaluation with head CT scan and subsequently head MRI was unrevealing. She was treated with IV Labetalol with minimal response. She was advised hospitalization for further management of her elevated blood pressure with possible end organ impairment in view of her abnormal gait and postural dizziness. Her morbidities include Hypertension, Diabetes mellitus type 2, Obesity, and Osteoarthritis. Hospital Course Hospital Course: Patient was admitted for malignant hypertension she was initially treated with IV Labetalol and managed on IV Cardene infusion in ICU. Her blood pressure was eventually controlled to a point that she was taken off the infusion and adjustment made to her oral antihypertensive therapy. with intermittent use of IV Hydralazine. She was seen in consultation by Dr. Hair, journeyman meat cutter, for reported episodes of cardiac dysrhythmia and fluctuating high blood pressure. Her pharmacologic stress test was unrevealing of any significant ischemic process. Her echocardiogram revealed LVEF above 60%. She will be discharged home on generic Exforge 10/320 mg daily and Terazosin 1 mg p.o bid. Patient was instructed on home blood pressure monitoring. She will follow up in office as instructed upon discharge. Physical Exam Vital Signs: Temp Pulse Resp BP Pulse Ox 97.9 F 72 14 147/67 H 96 09/03/17 02:38 09/03/17 02:38 09/03/17 02:38 09/03/17 02:38 09/03/17 02:38 Intake & Output 09/02/17 09/03/17 09/04/17 06:59 06:59 06:59 Intake Total 1072 750 Balance 1072 750 Weight 81.1 kg 80 kg Physical Exam: General appearance: PRESENT: no acute distress, well-developed, well-nourished, severe hearing impaired. Eye exam: PRESENT: conjunctiva pink, EOMI, PERRLA. ABSENT: scleral icterus Mouth exam: PRESENT: moist Respiratory exam: PRESENT: clear to auscultation carlin Cardiovascular exam: PRESENT: RRR. ABSENT: diastolic murmur, rubs, systolic murmur GI/Abdominal exam: PRESENT: normal bowel sounds, soft. ABSENT: distended, guarding, mass, organomegaly, rebound, tenderness Extremities exam: ABSENT: pedal edema Neurological exam: PRESENT: alert, awake, oriented to person, oriented to place , oriented to time, oriented to situation, CN II-XII grossly intact. ABSENT: motor sensory deficit Skin exam: PRESENT: dry, intact, warm. ABSENT: cyanosis, rash Results Laboratory Results: 08/31/17 03:39 08/31/17 03:39 08/26/17 08/26/17 15:39 15:39 Creatine Kinase 55 CK-MB (CK-2) 1.07 Troponin I < 0.012 Impressions: Chest X-Ray 08/25/17 00:00 IMPRESSION: No acute cardiopulmonary findings. Head CT 08/25/17 14:39 IMPRESSION: No acute findings EVIDENCE OF ACUTE STROKE: NO. Head MRI 08/25/17 19:36 IMPRESSION: ATROPHY AND CHRONIC MICRO-VASCULAR ISCHEMIC CHANGES. OTHERWISE NORMAL MRI OF THE BRAIN WITHOUT INTRAVENOUS GADOLINIUM CONTRAST. EVIDENCE OF ACUTE STROKE: NO. Vascular Ultrasound 08/29/17 00:00 IMPRESSION: NO DOPPLER EVIDENCE OF HEMODYNAMICALLY SIGNIFICANT RENAL ARTERY STENOSIS. Qualifiers - * PATEINT BEING DISCHARGED WITH ANY OF THE FOLLOWING DIAGNOSIS?: No Plan Discharge Plan: D/C home today with GUEST SERVICES AGENT services. She will follow up in the office as instructed upon discharge.
[2017-09-03 09:49] VITALS: BP 210/70
--- NOTE | 2017-09-03 19:47 | PDOC PROGRESS REPORT ---
Subjective Progress Note for:: 09/01/17 Subjective:: Patient seems to be doing significantly better with marked improvement in her dizziness. Pt is denying any chest arm or neck discomfort. Patient denying any PND, orthopnea. Patient denied any sustained palpitations, dizziness, syncope, near syncope. Patient denying any fever chills. Patient denying any other significant discomfort. Blood pressure seems much improved. Nuclear stress test procedure was explained to the patient in detail. Risk benefits discussed. Rationale of nuclear stress test was also discussed. Patient is maintaining sinus rhythm. Review of systems: Rest review of systems negative. Medications: Medications have been reviewed. Reason For Visit: MALIGNANT HYPERTENSION Physical Exam Vital Signs: Temp Pulse Resp BP Pulse Ox 98.7 F 67 15 149/70 H 97 09/01/17 20:34 09/01/17 20:34 09/01/17 20:34 09/01/17 20:34 09/01/17 20:34 Intake & Output 08/31/17 09/01/17 09/02/17 06:59 06:59 06:59 Intake Total 460 780 542 Output Total 850 Balance -390 780 542 Weight 81.1 kg Exam: GENERAL: well-nourished and in no acute distress. Alert and oriented x3 HEAD: Atraumatic, normocephalic. EYES: Pupils equal round and reactive to light, extraocular movements intact, sclera anicteric, conjunctiva are normal. ENT: TMs normal, nares patent, oropharynx clear without exudates. Moist mucous membranes. No oral ulcerations or bleeding gums noted NECK: supple without lymphadenopathy. Trachea is central. No cervical or axillary lymphadenopathy noted. Carotids are 2+, JVD WNL LUNGS: Respiration seems nonlabored, no significant accessory muscle action noted. Breath sounds clear to auscultation bilaterally and equal noted. No wheezes rales or rhonchi noted. No significant dullness noted on percussion. CHEST: Palpation of the chest wall shows no significant chest wall tenderness. No other significant abnormalities noted. 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 ABDOMEN: Soft, no significant tenderness appreciated, normoactive bowel sounds. No guarding, no rebound. No rigidity noted . No masses appreciated. EXTREMITIES: Pedal pulses are 1-2+, no calf tenderness noted. No clubbing or cyanosis.trace to 1+ pedal edema noted NEUROLOGICAL: Focused neurological exam showed no significant neurologic deficit. Normal speech, no focal weakness appreciated. PSYCH: Normal mood, normal affect. Judgment and insight within normal limits. SKIN: No significant ecchymosis, skin is noted to be warm. MUSCULOSKELETAL EXAM: No significant acute joint swelling noted. Results Laboratory Results: 08/31/17 03:39 08/31/17 03:39 08/26/17 08/26/17 15:39 15:39 Creatine Kinase 55 CK-MB (CK-2) 1.07 Troponin I < 0.012 EKG Comments: Telemetry strips shows sinus rhythm without any sustained tachycardia or bradycardia. Occasional VPCs noted. Impressions: Chest X-Ray 08/25/17 00:00 IMPRESSION: No acute cardiopulmonary findings. Head CT 08/25/17 14:39 IMPRESSION: No acute findings EVIDENCE OF ACUTE STROKE: NO. Head MRI 08/25/17 19:36 IMPRESSION: ATROPHY AND CHRONIC MICRO-VASCULAR ISCHEMIC CHANGES. OTHERWISE NORMAL MRI OF THE BRAIN WITHOUT INTRAVENOUS GADOLINIUM CONTRAST. EVIDENCE OF ACUTE STROKE: NO. Vascular Ultrasound 08/29/17 00:00 IMPRESSION: NO DOPPLER EVIDENCE OF HEMODYNAMICALLY SIGNIFICANT RENAL ARTERY STENOSIS. Assessment & Plan - Diagnosis (1) Accelerated hypertension Is this a current diagnosis for this admission?: Yes (2) Wide-complex tachycardia Is this a current diagnosis for this admission?: Yes (3) Ventricular ectopy Is this a current diagnosis for this admission?: Yes (4) Vertigo Is this a current diagnosis for this admission?: Yes (5) Diabetes mellitus type 2 in obese Is this a current diagnosis for this admission?: Yes - Notes Notes: Accelerated hypertension: Blood pressure under better control. Renal ultrasound was negative for renal artery stenosis. Blood pressure today has been stable. Wide-complex tachycardia: Rhythm strips were reviewed. Patient was noted to have intermittent sinus tachycardia with bundle branch block pattern. Do not think patient had any ventricular tachycardia. Available rhythm strips were reviewed. No recurrence noted. Increased ventricular ectopy: Could be related to severe hypertension, electrolyte imbalance, possible silent ischemia. At this point continue to observe patient. Nuclear stress test was negative for any pharmacologic stress-induced ischemia. Vertigo: Patient describes positional vertigo. Possibly related to severe hypertension. Patient much improved on meclizine. Diabetes: Recommend good control but avoid very tight controls. 2D echo results reviewed. It shows normal LVEF. Further evaluation and management based on results of these tests. Nuclear stress test was negative for pharmacologic stress-induced ischemia. Results were discussed with the patient in detail. 2D echocardiogram results were also discussed. It seems patient is relatively stable. Will follow one more day for satisfactory control of blood pressure. - Time Time with patient: Greater than 35 minutes - Significant time spent discussing results of nuclear stress test, 2D echocardiogram and course during this hospitalization. CODE STATUS was discussed, patient remains full code. Surrogate decision-maker unchanged. Multiple medical problems were addressed. More than 50% of the time spent coordinating care, discussing management plans with involved caregivers. Management plans discussed with involved personnels. Medical decision making was of moderate to high complexity, patient's has multiple comorbidities. Medications reviewed and adjusted accordingly: Yes
== END 2017-09-03 10:08 | disposition home or self-care (01) | DRG 305 ==
LOC: ER 13:55 → EH 22:45 → ICU 08-26 04:27 → 3S 08-31 07:40
PROVIDERS: ADMIT Internal Medicine Geriatric Medicine; ATTEND Internal Medicine Geriatric Medicine
DX: I10 Essential (primary) hypertension (principal); N30.00 Acute cystitis without hematuria; E11.9 Type 2 diabetes mellitus without complications; I44.7 Left bundle-branch block, unspecified; M19.90 Unspecified osteoarthritis, unspecified site; E66.9 Obesity, unspecified; R26.81 Unsteadiness on feet; R42 Dizziness and giddiness; R00.0 Tachycardia, unspecified; R26.89 Other abnormalities of gait and mobility; I49.3 Ventricular premature depolarization; Z79.84 Long term (current) use of oral hypoglycemic drugs; Z79.899 Other long term (current) drug therapy; Z68.30 Body mass index [BMI] 30.0-30.9, adult; Z82.49 Family history of ischemic heart disease and other diseases of the circulatory system
CPT/HCPCS: 36415; 70450; 70551; 71045; 78452; 80048; 80053; 81001; 82550; 82553; 82962; 83735; 84100; 84484; 85025; 85027; 87086; 93005; 93010; 93017; 93306; 93976; 96365; 96366; 96375; 99291; A9500; G8978-GP; G8979-GP; J0280; J0360; J0696; J1650; J2060; J2405; J2550; J2785; J3480; J3490; Q9969

== ENCOUNTER 2019-03-25 14:12 | Emergency (ER) | payer OTHER, MEDICARE, MEDICAID ==
[2019-03-25] MEDS ORDERED: NORMAL SALINE 500 ML IV ONE (16:06)
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
[2019-03-25 17:50] LABS: ANION GAP 9 (5-19); BLOOD UREA NITROGEN 46 mg/dL (7-20); CALCIUM 9.2 mg/dL (8.4-10.2); CARBON DIOXIDE 25 mmol/L (22-30); CHLORIDE 105 mmol/L (98-107); GLUCOSE 190 mg/dL (75-110); POTASSIUM 4.3 mmol/L (3.6-5.0)
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
[2019-03-25 22:21] VITALS: BP 171/86
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
== END 2019-03-25 22:40 | disposition short-term general hospital (02) ==
LOC: ER 14:12
DX: S27.321A Contusion of lung, unilateral, initial encounter (principal); S81.812A Laceration without foreign body, left lower leg, initial encounter; S81.811A Laceration without foreign body, right lower leg, initial encounter; S30.1XXA Contusion of abdominal wall, initial encounter; M54.2 Cervicalgia; R07.9 Chest pain, unspecified; R10.9 Unspecified abdominal pain; M25.561 Pain in right knee; M25.562 Pain in left knee; V43.52XA Car driver injured in collision with other type car in traffic accident, initial encounter; I10 Essential (primary) hypertension; E11.9 Type 2 diabetes mellitus without complications
CPT/HCPCS: 99285; 96360; 36415; 80048; 73562 ×2; 70450; 71260; 72125; 74177; J7040